=== PATIENT | female | born 1990 | race Caucasian/White ===

== ENCOUNTER 2020-12-06 16:19 | Outpatient (REF) | payer OTHER, SELFPAY ==
[2020-12-06 17:44] LABS: Hematocrit 39.2 % (37-47); Hemoglobin 12.8 g/dl (12.0-16.0); Mean Corpuscular HGB Conc 32.7 g/dl (31.0-35.0); Mean Corpuscular Hemoglobin 29.3 pg (27.0-33.0); Mean Corpuscular Volume 89.7 fL (80-98); Mean Platelet Volume 10.7 fL (9.4-12.3); Platelet Count 323 X10*3/uL (160-400); Red Blood Count 4.37 X10*6/uL (4.20-5.50); Red Cell Distribution Width 13.2 % (11.0-16.0); White Blood Count 10.8 X10*3/uL (4.8-10.8)
[2020-12-06 17:49] LABS: INTERNATIONAL NORM RATIO 1.1 (0.9-1.1); Prothrombin Time 12.3 SEC (9.9-13.0)
[2020-12-06 17:52] LABS: Partial Thromboplastin Time 30.2 SEC (24.1-38.0)
== END 2020-12-06 16:20 | disposition home or self-care (01) ==
LOC: HO.LAB 16:19
PROVIDERS: PCP Internal Medicine; Visit Provider Specialist
DX: Z01.812 Encounter for preprocedural laboratory examination (principal)
CPT/HCPCS: 36415; 85027; 85610; 85730

== ENCOUNTER 2020-12-21 06:32 | Outpatient (REF) | payer OTHER, SELFPAY ==
--- NOTE | 2020-12-21 06:52 | ECG_ITS ---
Test Reason : PRE OP Blood Pressure : / mmHG Vent. Rate : 063 BPM Atrial Rate : 063 BPM P-R Int : 148 ms QRS Dur : 086 ms QT Int : 428 ms P-R-T Axes : 021 025 009 degrees QTc Int : 437 ms Normal sinus rhythm Normal ECG When compared with ECG of 31-DEC-2010 23:15, No significant change was found Referred By: Janet Alanis Electronically Signed By:LEXI GARCIA MD
[2020-12-21 07:34] LABS: Alanine Aminotransferase 15 U/L (0-31); Albumin Level 4.1 g/dL (3.5-5.0); Alkaline Phosphatase 85 U/L (39-117); Anion Gap 11 (12-20); Aspartate Amino Transferase 16 U/L (5-31); Bilirubin Total 0.4 mg/dL (0.0-1.0); Blood Urea Nitrogen 7 mg/dL (9-16); Calcium 9.5 mg/dL (8.4-10.2); Carbon Dioxide 26 mmol/L (22-29); Chloride 110 mmol/L (96-108); Estimated Glomerular Filt Rate > 60; Glucose Fasting 109 mg/dL (60-99); Potassium 4.2 mmol/L (3.3-5.1); Sodium 143 mmol/L (135-145); Total Protein 7.2 g/dL (6.5-8.0)
== END 2020-12-21 06:33 | disposition home or self-care (01) ==
LOC: HO.LAB 06:32
PROVIDERS: PCP Internal Medicine; Visit Provider Internal Medicine
DX: Z01.818 Encounter for other preprocedural examination (principal); E66.9 Obesity, unspecified
CPT/HCPCS: 36415; 80053; 93005

== ENCOUNTER 2021-05-01 10:34 | Emergency (ER) | payer OTHER, SELFPAY ==
--- NOTE | ~2021-05-01 | XR_ITS ---
EXAMINATION: XR CHEST CLINICAL INFORMATION: Covid positive. Cough COMPARISON: None TECHNIQUE: 2 views of the chest were obtained. FINDINGS: The lungs are somewhat expanded with patchy opacity seen in both mid and lower lung slightly greater on the right suggestive of infiltrates. Heart size and progress clarities normal. No gross bony abnormality seen. XR/XR chest 2V IMPRESSION: Hypoexpanded lungs with bilateral infiltrates right greater than left.
--- NOTE | ~2021-05-01 | CT_ITS ---
EXAMINATION: CT ANGIOGRAM OF THE CHEST WITH AND WITHOUT CONTRAST (CT PULMONARY ANGIOGRAM FOR PE) CLINICAL INFORMATION: Reason for Exam Elevated D-dimer. COVID-19 positive. r/o PE COMPARISON: Chest x-ray 05/01/2021 TECHNIQUE: Prior to contrast administration, noncontrast localization images were obtained. Subsequently, multidetector volumetric imaging was performed from the thoracic inlet to below the diaphragms following the administration of 65 mL Omnipaque 350 intravenous contrast. No contrast reaction reported Sagittal, coronal, and MIP oblique sagittal reformatted images were obtained on the CT workstation, uploaded to PACS, and reviewed. This CT examination was performed using dose optimization techniques as appropriate, variously including the following: *Automated exposure control *Adjustment of mA and/or kV according to patient size (this includes techniques or standardized protocols for targeted exams where dose is matched to indication/reason for exam; i.e. extremities or head) *Use of iterative reconstruction technique Total exam dose-length product 204.87 mGy-cm FINDINGS: QUALITY OF STUDY/CONTRAST BOLUS: Satisfactory. PULMONARY ARTERIES: No central or segmental pulmonary emboli. THORACIC AORTA: No aneurysm or dissection. LUNG: Multifocal airspace opacities ,pneumonia. These have the appearance of crazy paving and are consistent with clinical history of Covid 19 positive. PLEURA: No pleural effusion or pneumothorax. MEDIASTINUM: Normal heart size. No pericardial effusion. No hilar or mediastinal lymphadenopathy. No evidence of septal bowing or right heart strain. CHEST WALL/AXILLA: No axillary or internal mammary lymphadenopathy. OSSEOUS STRUCTURES: No acute or suspicious osseous abnormality. UPPER ABDOMEN: Unremarkable. No reflux of contrast into the hepatic veins to suggest elevated right heart pressures. CT/CT angio chest PE protocol IMPRESSION: 1. No evidence of pulmonary embolism. 2. Multifocal airspace disease consistent with pneumonia. VTE: negative
[2021-05-01 12:09] VITALS: BP 121/59; PULSE 108; RESP 20; TEMP 37.2; O2SAT 96; BMI 28.1
[2021-05-01 13:45] LABS: Imm Gran Abs Auto 0.01 X10*3/uL (0.00-0.03); Imm Gran Pct Auto 0.2 % (0.0-0.4); Lymphocytes Absolute Auto 1.3 X10*3/uL (1.2-4.9); Mean Corpuscular HGB Conc 33.3 g/dl (31.0-35.0); SCAN SMEAR FLAG 1
[2021-05-01 13:47] LABS: Hematocrit 40.6 % (37.0-47.0); Hemoglobin 13.5 g/dl (12.0-16.0); Mean Corpuscular Hemoglobin 26.8 pg (27.0-33.0); Mean Corpuscular Volume 80.7 fL (80.0-98.0); Monocytes Absolute Auto 0.1 X10*3/uL (0.1-1.2); Monocytes Percent Auto 2.5 % (2-11); Neutrophils Percent Auto 68.3 % (45-73); Platelet Count 166 X10*3/uL (160-400); Red Blood Count 5.03 X10*6/uL (4.20-5.50); Red Cell Distribution Width 16.3 % (11.0-16.0); White Blood Count 4.4 X10*3/uL (4.8-10.8)
[2021-05-01 13:49] LABS: UPreg QC Valid YES; Urine Pregnancy NEGATIVE (NEGATIVE)
[2021-05-01 14:01] LABS: Alanine Aminotransferase 20 U/L (0-31); Albumin Level 4.2 g/dL (3.5-5.0); Alkaline Phosphatase 66 U/L (39-117); Anion Gap 16 (12-20); Aspartate Amino Transferase 34 U/L (5-31); Bilirubin Direct 0.2 mg/dL (0.0-0.5); Bilirubin Total 0.4 mg/dL (0.0-1.0); Blood Urea Nitrogen 9 mg/dL (9-16); C Reactive Protein 10.73 mg/dL (< or = 0.50); Calcium 8.8 mg/dL (8.4-10.2); Carbon Dioxide 21 mmol/L (22-29); Chloride 103 mmol/L (96-108); Creatinine Clr Calc Pharmacy 102.2; Estimated Glomerular Filt Rate > 60; Glucose Random 110 mg/dL (60-115); Lactate Dehydrogenase 371 U/L (122-220); Lipase 88 U/L (8-78); Potassium 3.6 mmol/L (3.3-5.1); Sodium 136 mmol/L (135-145); Total Protein 7.9 g/dL (6.5-8.0)
[2021-05-01 14:05] LABS: INTERNATIONAL NORM RATIO 1.3 (0.9-1.1); MANUAL DIFF FLAG SCAN; PLT ABN DIST 1
[2021-05-01 14:06] LABS: SLIDE REVIEW VERIFIED
[2021-05-01 14:07] LABS: D Dimer High Sensitivity 314 NG/ML; Partial Thromboplastin Time 29.7 SEC (24.1-38.0)
[2021-05-01 14:08] LABS: B Type Natriuretic Peptide < 10 pg/mL (<100); Troponin-I High Sensitivity < 3.5 ng/L (<3.5-17.0)
[2021-05-01 14:11] LABS: Lactic Acid 1.7 mmol/L (0.5-2.0)
[2021-05-01 14:20] LABS: Procalcitonin 0.05 ng/mL
[2021-05-01 14:23] LABS: Ferritin 172 ng/mL (10-122)
[2021-05-01] MEDS: Ketorolac Tromethamine 30 MG/ML VIAL 15 MG IVPUSH (14:30)
[2021-05-01] MEDS: HYDROcodone/Homat 5/1.5/5 ML 5 ML SYRUP PO (14:31)
[2021-05-01] MEDS: Benzonatate 100 MG CAPSULE 200 MG PO (14:31)
[2021-05-01] MEDS: Acetaminophen 325 MG TABLET 650 MG PO (14:31)
[2021-05-01] MEDS: 0.9 % Sodium Chloride 1,000 ML 999 ML IVCONT (14:32)
[2021-05-01] MEDS: Famotidine/PF 20 MG/2 ML VIAL IVPUSH (14:32)
[2021-05-01] MEDS: ondansetron HCL 4 MG/2 ML VIAL IVPUSH (14:32)
--- NOTE | 2021-05-01 14:34 | ED_ITS ---
HPI - URI/Sore Throat General Chief Complaint: Upper Respiratory Symptoms Stated Complaint: covid + diff breathing Time Seen by Provider: 05/01/21 12:24 Source: patient Mode of arrival: ambulatory History of Present Illness HPI Narrative: 30-year-old female with a past medical history of anxiety, depression, COVID-19 positive on 04/22/2021, presenting to the ED complaining of fever T-max 102?, cough, worsening SOB, and right-sided chest discomfort worse with coughing and deep breathing. Reports diffuse myalgias, lethargy/fatigue, and nausea. Family at home also COVID positive. Denies abdominal pain, vomiting, diarrhea, pedal edema MD elicited complaint: fever, cough and nasal congestion Related Data Home Medications Medication Instructions Recorded Confirmed sertraline 100 mg tablet 200 mg PO DAILY 12/20/20 Previous Rx's Medication Instructions Recorded acetaminophen 500 mg tablet 500 mg PO Q6H PRN #20 tab 05/01/21 (Tylenol Extra Strength) albuterol sulfate 90 mcg/actuation 2 puff INHALATION Q4-6H PRN #6.7 g 05/01/21 aerosol inhaler benzonatate 200 mg capsule 200 mg PO TID PRN #20 cap 05/01/21 doxycycline hyclate 100 mg tablet 100 mg PO BID 7 Days #14 tab 05/01/21 fluticasone propionate 50 2 spray INTRANASAL DAILY #16 g 05/01/21 mcg/actuation nasal spray,suspension (Flonase Allergy Relief) Allergies Allergy/AdvReac Type Severity Reaction Status Date / Time sumatriptan [Sumatriptan] Allergy Unknown FACIAL Verified 12/20/20 12:58 SWELLING THROAT TIGHTNESS Review of Systems Review of Systems: Constitutional: + Fever, + Chills, No Night Sweats, + Fatigue, + Malaise ENT/Mouth: No Ear Pain, No Nasal Congestion, No Sinus Pain, No Hoarseness, No sore throat, + Rhinorrhea, No Swallowing Difficulty Eyes: No Eye Pain, No Swelling, No Redness Cardiovascular: + Chest Pain, + SOB, No Dyspnea on Exertion, No Orthopnea, No Edema, No Palpitations Respiratory: + Cough, No Sputum, No Wheezing, + Dyspnea Gastrointestinal: + Nausea, No Vomiting, No Diarrhea, No Constipation, No Abdominal pain Genitourinary: No Dysuria, No Urinary Frequency, No Hematuria, No Flank Pain, No Urinary Flow Changes Musculoskeletal: No joint pain, + Myalgias, No Joint Swelling Skin: No Skin Lesions, No rash Neuro: No Weakness, No Dizziness, + Headache Yes all other systems are reviewed and are negative [facility] Past Medical History Attestation statement: The following information was validated with the patient. Medical History SHMUEL (generalized anxiety disorder) Mild depression Obese Pre-op evaluation Surgical History History of appendectomy History of eye surgery Family History Family History Father Diabetes Hypertension Chronic mental illness Depression Mother No problems noted. Paternal Grandmother Pneumonia Paternal Grandfather Throat cancer Suicide Family/Other FH: mental illness Social History Social History Housing: Apartment Alcohol intake: former Patient Tobacco Use Status: Former Tobacco user Tobacco use type: Cigarette e-Cigarette/Vaping Use: Never Used Second Hand Smoke Exposure: No Advance Directives: No Advance Directives Information Provided: No Patient : No service: No Current occupational status: employed Physical Exam Vital Signs: Vital Signs: Last Vital Signs Temp 98.8 F 05/01/21 16:40 Pulse 102 H 05/01/21 16:40 Resp 20 05/01/21 16:40 BP 128/77 05/01/21 16:40 Pulse Ox 95 05/01/21 16:40 BMI result Body Mass Index 28.1 Const: General: cooperative Orientation/consciousness: patient oriented x3 Limitations: no limitations HENMT: Head: Yes normal to inspection Ears: hearing grossly normal bilaterally General nose exam: Normal external nose present Face and sinus: Yes normal facial exam Eyes: General: appearance normal, both eyes and all related structures EOM: EOMs intact bilaterally Neck: Neck: Yes normal visual inspection, Yes no meningeal signs and Yes supple Resp: Effort & Inspection: normal respiratory effort and no respiratory distress Auscultation: clear to auscultation bilaterally, no rales, no rhonchi and no wheezes Cardio: Rate: regular rate Heart sounds: S1 normal heart sound present and S2 normal heart sound present GI: Inspection: Yes normal to inspection Palpation (GI): Soft to palpation, nontender, no guarding and not rigid : General: Yes no CVA tenderness Back/Spine/Pelvis: Back: no CVA tenderness Skin: Rashes: no rashes Wounds: no wounds Neuro: General: patient oriented x3 and no meningeal signs Gait exam (Neuro): Normal gait present Extrem: General: Yes normal to inspection, Yes no pedal edema and Yes no calf tenderness Course Course Course Narrative: XR chest 2V IMPRESSION: Hypoexpanded lungs with bilateral infiltrates right greater than left. >> suspected from COVID-19 infection. Still low concern for severe sepsis as known viral etiology. IV Doxycycline ordered -1434--leukopenic to 4.4 expected from COVID-19 infection. D-dimer elevated to 314 > will obtain CTA to rule out PE. Lactic acid negative. -ferritin, LDH, CRP elevated consistent with COVID-19 infection. Lipase mildly elevated. Troponin negative 1624-- CT angio chest PE protocol IMPRESSION: 1. No evidence of pulmonary embolism. 2. Multifocal airspace disease consistent with pneumonia. VTE: negative -satting 92% on RA > will give patient 1 time dose of 6mg of IV Decadron in the ED >> will ambulate patient with pulse ox -1650--patient ambulated in the ED maintaining saturation 92% on RA, 94% at rest. Patient is safe for discharge home at this time, worrisome signs and symptoms and strict return precautions discussed. Discussed with patient needed close monitoring of pulse oximetry at home MDM - URI/Sore Throat MDM Narrative Medical decision making narrative: 30-year-old female with a past medical history of anxiety, depression, COVID-19 positive on 04/22/2021, presenting to the ED complaining of fever T-max 102?, cough, worsening SOB, and right-sided chest discomfort worse with coughing and deep breathing. On exam low-grade temp 99?, tachycardic likely from fever, lungs CTA, abdomen soft/nontender, no pedal edema/calf tenderness. Concern for persistent COVID-19 symptoms vs COVID pneumonia vs PE. Low concern for severe sepsis at this time as known viral etiology Plan: EKG, labs, CXR, lactic, blood cultures, D-dimer Differential Diagnosis Differential diagnosis: Likely upper respiratory infection, viral infection, bronchitis and pharyngitis Medical Records Attestation: I reviewed the patient's medical records. Lab Data Attestation: I reviewed the patient's lab results. Result diagrams: 05/01/21 13:35 05/01/21 13:35 Labs: Lab Results 05/01/21 05/01/21 05/01/21 Range/Units 13:35 13:35 13:35 WBC 4.4 L (4.8-10.8) X10*3/uL RBC 5.03 (4.20-5.50) X10*6/uL Hgb 13.5 (12.0-16.0) g/dl Hct 40.6 (37.0-47.0) % MCV 80.7 (80.0-98.0) fL MCH 26.8 L (27.0-33.0) pg MCHC 33.3 (31.0-35.0) g/dl RDW 16.3 H (11.0-16.0) % Plt Count 166 (160-400) X10*3/uL MPV 11.0 (9.4-12.3) fL Immature Gran % (Auto) 0.2 (0.0-0.4) % Neut % (Auto) 68.3 (45-73) % Lymph % (Auto) 29.0 (20-40) % [place] % (Auto) 2.5 (2-11) % Eos % (Auto) 0.0 (0-4) % Baso % (Auto) 0.0 (0-2) % Lymph # (Auto) 1.3 (1.2-4.9) X10*3/uL [place] # (Auto) 0.1 (0.1-1.2) X10*3/uL Eos # (Auto) 0.0 (0.0-0.4) X10*3/uL Baso # (Auto) 0.0 (0.0-0.2) X10*3/uL Abs Immat Gran (auto) 0.01 (0.00-0.03) X10*3/uL Absolute Neuts (auto) 3.0 (2.0-8.3) x10*3/uL Absolute Nucleated RBC 0.000 (0.0-0.012) X10*3/uL Nucleated RBC % (auto) 0.0 (0.0-0.2) /100WBC Smear Tech's Comments VERIFIED PT 15.0 H (9.9-13.0) SEC INR 1.3 H (0.9-1.1) APTT 29.7 (24.1-38.0) SEC D-Dimer High Sensitivty 314 NG/ML Sodium 136 (135-145) mmol/L Potassium 3.6 (3.3-5.1) mmol/L Chloride 103 (96-108) mmol/L Carbon Dioxide 21 L (22-29) mmol/L Anion Gap 16 (12-20) BUN 9 (9-16) mg/dL Creatinine 0.75 (0.5-1.4) mg/dL Estim Creat Clear Calc 102.2 Estimated GFR > 60 Random Glucose 110 (60-115) mg/dL Lactic Acid (0.5-2.0) mmol/L Calcium 8.8 D (8.4-10.2) mg/dL Magnesium 2.0 (1.6-2.6) mg/dL Ferritin (10-122) ng/mL Total Bilirubin 0.4 (0.0-1.0) mg/dL Direct Bilirubin 0.2 (0.0-0.5) mg/dL AST 34 H D (5-31) U/L ALT 20 (0-31) U/L Alkaline Phosphatase 66 D (39-117) U/L Lactate Dehydrogenase 371 H (122-220) U/L Troponin I High Sens (<3.5-17.0) ng/L C-Reactive Protein 10.73 H (< or = 0.50) mg/dL B-Natriuretic Peptide (<100) pg/mL Total Protein 7.9 (6.5-8.0) g/dL Albumin 4.2 (3.5-5.0) g/dL Lipase (8-78) U/L Procalcitonin ng/mL Urine Test (NEGATIVE) 05/01/21 05/01/21 05/01/21 Range/Units 13:35 13:35 13:35 WBC (4.8-10.8) X10*3/uL RBC (4.20-5.50) X10*6/uL Hgb (12.0-16.0) g/dl Hct (37.0-47.0) % MCV (80.0-98.0) fL MCH (27.0-33.0) pg MCHC (31.0-35.0) g/dl RDW (11.0-16.0) % Plt Count (160-400) X10*3/uL MPV (9.4-12.3) fL Immature Gran % (Auto) (0.0-0.4) % Neut % (Auto) (45-73) % Lymph % (Auto) (20-40) % [place] % (Auto) (2-11) % Eos % (Auto) (0-4) % Baso % (Auto) (0-2) % Lymph # (Auto) (1.2-4.9) X10*3/uL [place] # (Auto) (0.1-1.2) X10*3/uL Eos # (Auto) (0.0-0.4) X10*3/uL Baso # (Auto) (0.0-0.2) X10*3/uL Abs Immat Gran (auto) (0.00-0.03) X10*3/uL Absolute Neuts (auto) (2.0-8.3) x10*3/uL Absolute Nucleated RBC (0.0-0.012) X10*3/uL Nucleated RBC % (auto) (0.0-0.2) /100WBC Smear Tech's Comments PT (9.9-13.0) SEC INR (0.9-1.1) APTT (24.1-38.0) SEC D-Dimer High Sensitivty NG/ML Sodium (135-145) mmol/L Potassium (3.3-5.1) mmol/L Chloride (96-108) mmol/L Carbon Dioxide (22-29) mmol/L Anion Gap (12-20) BUN (9-16) mg/dL Creatinine (0.5-1.4) mg/dL Estim Creat Clear Calc Estimated GFR Random Glucose (60-115) mg/dL Lactic Acid (0.5-2.0) mmol/L Calcium (8.4-10.2) mg/dL Magnesium (1.6-2.6) mg/dL Ferritin 172 H (10-122) ng/mL Total Bilirubin (0.0-1.0) mg/dL Direct Bilirubin (0.0-0.5) mg/dL AST (5-31) U/L ALT (0-31) U/L Alkaline Phosphatase (39-117) U/L Lactate Dehydrogenase (122-220) U/L Troponin I High Sens < 3.5 (<3.5-17.0) ng/L C-Reactive Protein (< or = 0.50) mg/dL B-Natriuretic Peptide < 10 (<100) pg/mL Total Protein (6.5-8.0) g/dL Albumin (3.5-5.0) g/dL Lipase 88 H (8-78) U/L Procalcitonin 0.05 ng/mL Urine Test (NEGATIVE) 05/01/21 05/01/21 Range/Units 13:35 13:48 WBC (4.8-10.8) X10*3/uL RBC (4.20-5.50) X10*6/uL Hgb (12.0-16.0) g/dl Hct (37.0-47.0) % MCV (80.0-98.0) fL MCH (27.0-33.0) pg MCHC (31.0-35.0) g/dl RDW (11.0-16.0) % Plt Count (160-400) X10*3/uL MPV (9.4-12.3) fL Immature Gran % (Auto) (0.0-0.4) % Neut % (Auto) (45-73) % Lymph % (Auto) (20-40) % [place] % (Auto) (2-11) % Eos % (Auto) (0-4) % Baso % (Auto) (0-2) % Lymph # (Auto) (1.2-4.9) X10*3/uL [place] # (Auto) (0.1-1.2) X10*3/uL Eos # (Auto) (0.0-0.4) X10*3/uL Baso # (Auto) (0.0-0.2) X10*3/uL Abs Immat Gran (auto) (0.00-0.03) X10*3/uL Absolute Neuts (auto) (2.0-8.3) x10*3/uL Absolute Nucleated RBC (0.0-0.012) X10*3/uL Nucleated RBC % (auto) (0.0-0.2) /100WBC Smear Tech's Comments PT (9.9-13.0) SEC INR (0.9-1.1) APTT (24.1-38.0) SEC D-Dimer High Sensitivty NG/ML Sodium (135-145) mmol/L Potassium (3.3-5.1) mmol/L Chloride (96-108) mmol/L Carbon Dioxide (22-29) mmol/L Anion Gap (12-20) BUN (9-16) mg/dL Creatinine (0.5-1.4) mg/dL Estim Creat Clear Calc Estimated GFR Random Glucose (60-115) mg/dL Lactic Acid 1.7 (0.5-2.0) mmol/L Calcium (8.4-10.2) mg/dL Magnesium (1.6-2.6) mg/dL Ferritin (10-122) ng/mL Total Bilirubin (0.0-1.0) mg/dL Direct Bilirubin (0.0-0.5) mg/dL AST (5-31) U/L ALT (0-31) U/L Alkaline Phosphatase (39-117) U/L Lactate Dehydrogenase (122-220) U/L Troponin I High Sens (<3.5-17.0) ng/L C-Reactive Protein (< or = 0.50) mg/dL B-Natriuretic Peptide (<100) pg/mL Total Protein (6.5-8.0) g/dL Albumin (3.5-5.0) g/dL Lipase (8-78) U/L Procalcitonin ng/mL Urine Test NEGATIVE (NEGATIVE) Discharge Plan Discharge Clinical Impression: Pneumonia due to COVID-19 virus Patient Disposition: Home, Self-Care Instructions: COVID-19 (Coronavirus Disease 2019) (ED) Additional Instructions: You have COVID pneumonia Doxycycline is an antibiotic please take as prescribed Please monitor your oxygen at home, obtain a pulse oximeter if her oxygen is dropping into the low 90s or below 90 return to the ED immediately Please use albuterol inhaler at home as needed for shortness of breath/wheezing Take Tylenol for fever/body aches, if this does not resolve fever take Motrin If symptoms persist or worsening of constant worsening shortness of breath, chest pain or fever unresolved with medications return to the ED Prescriptions: New albuterol sulfate 90 mcg/actuation HFA aerosol inhaler 2 puff inhalation Q4-6H PRN (Reason: shortness of breath or wheezing) Qty: 6.7 RF: 0 benzonatate 200 mg capsule 200 mg PO TID PRN (Reason: cough) Qty: 20 RF: 0 acetaminophen [Tylenol Extra Strength] 500 mg tablet 500 mg PO Q6H PRN (Reason: pain or fever) Qty: 20 RF: 0 fluticasone propionate [Flonase Allergy Relief] 50 mcg/actuation spray,suspension 2 spray intranasal DAILY Qty: 16 RF: 0 doxycycline hyclate 100 mg tablet 100 mg PO BID 7 Days Qty: 14 RF: 0 No Action sertraline 100 mg tablet 200 mg PO DAILY RF: 0 Referrals: Janet Rome MD [Primary Care Provider] - 2 days (call)
[2021-05-01 15:03] VITALS: BP 111/51; PULSE 101; RESP 18; TEMP 37.2; O2SAT 92
[2021-05-01] MEDS: iohexoL 350 MG/ML 100 ML INFUS..BTL IV (15:09)
[2021-05-01] MEDS: Doxycycline Hyclate 100 MG in 0.9 % Sodium Chloride 250 ML 166.67 MG IV (15:18)
[2021-05-01 16:40] VITALS: BP 128/77; PULSE 102; RESP 20; TEMP 37.1; O2SAT 95
[2021-05-01] MEDS: dexAMETHasone sod phosphate 4 MG/ML VIAL 6 MG IVPUSH (16:40)
== END 2021-05-01 20:20 | disposition home or self-care (01) ==
PROVIDERS: Physician Assistant; Emergency Provider Emergency Medicine; PCP Internal Medicine
DX: U07.1 COVID-19 (principal); J12.82 Pneumonia due to coronavirus disease 2019; R06.02 Shortness of breath; R50.9 Fever, unspecified; R00.0 Tachycardia, unspecified
CPT/HCPCS: 36415; 71046; 71275; 80048; 80076; 81025; 82728; 83605; 83615; 83690; 83735; 83880; 84145; 84484; 85025; 85379; 85610; 85730; 86140; 87040; 96361; 96365; 96375; 99284; J1100; J1885; J2405; Q9967

== ENCOUNTER 2021-05-03 11:03 | Inpatient (IN) | payer OTHER, SELFPAY ==
[2021-05-03] VITALS (10 sets, daily range): BP systolic 96–104; BP diastolic 52–64; PULSE 73–109; RESP 19–35; TEMP 36.8–37.1; O2SAT 90–97; BMI 25.0
--- NOTE | ~2021-05-03 | XR_ITS ---
EXAMINATION: XR CHEST CLINICAL INFORMATION: Worsening shortness of breath positive for COVID COMPARISON: Chest radiographs 05/01/2021 TECHNIQUE: Portable upright AP view of the chest was obtained. FINDINGS: There are low lung volumes with inspiration to the seventh posterior intercostal spaces. Bilateral streaky groundglass opacities are slightly increased. There is no confluent lobar or segmental airspace consolidation or effusion. No pneumothorax or pneumomediastinum. The vascularity is normal. The heart is normal in size. XR/XR chest 1V IMPRESSION: Bilateral streaky groundglass opacities slightly increased since recent study 05/01/2021. Low lung volumes/poor inspiration.
--- NOTE | 2021-05-03 12:07 | ECG_ITS ---
Test Reason : dyspnea Blood Pressure : / mmHG Vent. Rate : 096 BPM Atrial Rate : 096 BPM P-R Int : 144 ms QRS Dur : 082 ms QT Int : 334 ms P-R-T Axes : 029 004 020 degrees QTc Int : 421 ms Normal sinus rhythm Minimal voltage criteria for LVH, may be normal variant ( R in aVL ) Nonspecific T wave abnormality Abnormal ECG When compared with ECG of 21-DEC-2020 07:01, Vent. rate has increased BY 33 BPM Nonspecific T wave abnormality now evident in Anterolateral leads Referred By: Elva Voss Electronically Signed By:VIOLETA NERI
[2021-05-03] MEDS: Albuterol Sulfate (0.083%) 2.5 MG/3 ML VIAL.NEB 7.5 MG INHALE (12:25)
[2021-05-03 12:52] LABS: MANUAL DIFF FLAG NO
[2021-05-03 13:12] LABS: INTERNATIONAL NORM RATIO 1.4 (0.9-1.1); Prothrombin Time 15.8 SEC (9.9-13.0)
[2021-05-03 13:16] LABS: Lactic Acid 1.8 mmol/L (0.5-2.0)
[2021-05-03 13:22] LABS: Basophils Percent Auto 0.2 % (0-2); Hematocrit 35.6 % (37.0-47.0); Hemoglobin 11.7 g/dl (12.0-16.0); Imm Gran Abs Auto 0.05 X10*3/uL (0.00-0.03); Imm Gran Pct Auto 0.8 % (0.0-0.4); Lymphocytes Absolute Auto 1.1 X10*3/uL (1.2-4.9); Lymphocytes Percent Auto 17.8 % (20-40); Mean Corpuscular HGB Conc 32.9 g/dl (31.0-35.0); Mean Corpuscular Hemoglobin 26.7 pg (27.0-33.0); Mean Corpuscular Volume 81.3 fL (80.0-98.0); Mean Platelet Volume 11.4 fL (9.4-12.3); Monocytes Absolute Auto 0.1 X10*3/uL (0.1-1.2); Neutrophils Absolute Auto 4.9 x10*3/uL (2.0-8.3); Neutrophils Percent Auto 79.2 % (45-73); Platelet Count 167 X10*3/uL (160-400); Red Blood Count 4.38 X10*6/uL (4.20-5.50); White Blood Count 6.1 X10*3/uL (4.8-10.8)
[2021-05-03] MEDS: methylPREDNISolone Sod Succ 125 MG/2 ML VIAL IVPUSH (13:25)
[2021-05-03] MEDS: guaiFEN/Codeine SF 200/20/10ML 10 ML LIQUID PO (13:25)
[2021-05-03 13:26] LABS: Alanine Aminotransferase 24 U/L (0-31); Albumin Level 3.8 g/dL (3.5-5.0); Alkaline Phosphatase 53 U/L (39-117); Anion Gap 13 (12-20); Aspartate Amino Transferase 37 U/L (5-31); Bilirubin Total 0.5 mg/dL (0.0-1.0); Blood Urea Nitrogen 8 mg/dL (9-16); Calcium 8.5 mg/dL (8.4-10.2); Carbon Dioxide 26 mmol/L (22-29); Chloride 107 mmol/L (96-108); Creatinine Clr Calc Pharmacy 96.6; Estimated Glomerular Filt Rate > 60; Glucose Random 137 mg/dL (60-115); Potassium 3.6 mmol/L (3.3-5.1); Sodium 142 mmol/L (135-145); Total Protein 6.9 g/dL (6.5-8.0)
[2021-05-03] MEDS: cefTRIAXone sodium 1 GM in 0.9 % Sodium Chloride 50 ML IV (13:27)
[2021-05-03 13:29] LABS: B Type Natriuretic Peptide < 10 pg/mL (<100)
[2021-05-03] MEDS: 0.9 % Sodium Chloride 1,000 ML 999 ML IVCONT (13:31)
--- NOTE | 2021-05-03 13:40 | ED_ITS ---
HPI - URI/Sore Throat General Chief Complaint: Upper Respiratory Symptoms Stated Complaint: Covid+/Pneumonia/ Oxygen low Time Seen by Provider: 05/03/21 12:07 Related Data Home Medications Medication Instructions Recorded Confirmed sertraline 100 mg tablet 200 mg PO DAILY 12/20/20 Previous Rx's Medication Instructions Recorded acetaminophen 500 mg tablet 500 mg PO Q6H PRN #20 tab 05/01/21 (Tylenol Extra Strength) albuterol sulfate 90 mcg/actuation 2 puff INHALATION Q4-6H PRN #6.7 g 05/01/21 aerosol inhaler benzonatate 200 mg capsule 200 mg PO TID PRN #20 cap 05/01/21 doxycycline hyclate 100 mg tablet 100 mg PO BID 7 Days #14 tab 05/01/21 fluticasone propionate 50 2 spray INTRANASAL DAILY #16 g 05/01/21 mcg/actuation nasal spray,suspension (Flonase Allergy Relief) Allergies Allergy/AdvReac Type Severity Reaction Status Date / Time sumatriptan [Sumatriptan] Allergy Unknown FACIAL Verified 12/20/20 12:58 SWELLING THROAT TIGHTNESS PMFSH Past Medical History Medical History SHMUEL (generalized anxiety disorder) Mild depression Obese Pre-op evaluation Surgical History History of appendectomy History of eye surgery Family History Family History Father Diabetes Hypertension Chronic mental illness Depression Mother No problems noted. Paternal Grandmother Pneumonia Paternal Grandfather Throat cancer Suicide Family/Other FH: mental illness Social History Social History Housing: Apartment Alcohol intake: former Patient Tobacco Use Status: Former Tobacco user Tobacco use type: Cigarette e-Cigarette/Vaping Use: Never Used Second Hand Smoke Exposure: No Advance Directives: No Advance Directives Information Provided: No Patient : No service: No Current occupational status: employed Physical Exam Vital Signs: Vital Signs: Last Vital Signs Temp 98.6 F 05/03/21 13:32 Pulse 109 H 05/03/21 13:32 Resp 19 05/03/21 13:32 BP 99/52 L 05/03/21 13:32 Pulse Ox 97 05/03/21 13:32 Oxygen Flow Rate 2 05/03/21 12:08 BMI result Body Mass Index 25.0 MDM - URI/Sore Throat Lab Data Result diagrams: 05/03/21 12:42 05/03/21 12:42 Labs: Lab Results 05/03/21 05/03/21 05/03/21 Range/Units 12:42 12:42 12:42 WBC 6.1 (4.8-10.8) X10*3/uL RBC 4.38 (4.20-5.50) X10*6/uL Hgb 11.7 L (12.0-16.0) g/dl Hct 35.6 L (37.0-47.0) % MCV 81.3 (80.0-98.0) fL MCH 26.7 L (27.0-33.0) pg MCHC 32.9 (31.0-35.0) g/dl RDW 17.0 H (11.0-16.0) % Plt Count 167 (160-400) X10*3/uL MPV 11.4 (9.4-12.3) fL Immature Gran % (Auto) 0.8 H (0.0-0.4) % Neut % (Auto) 79.2 H (45-73) % Lymph % (Auto) 17.8 L (20-40) % [place] % (Auto) 2.0 (2-11) % Eos % (Auto) 0.0 (0-4) % Baso % (Auto) 0.2 (0-2) % Lymph # (Auto) 1.1 L (1.2-4.9) X10*3/uL [place] # (Auto) 0.1 (0.1-1.2) X10*3/uL Eos # (Auto) 0.0 (0.0-0.4) X10*3/uL Baso # (Auto) 0.0 (0.0-0.2) X10*3/uL Abs Immat Gran (auto) 0.05 H (0.00-0.03) X10*3/uL Absolute Neuts (auto) 4.9 (2.0-8.3) x10*3/uL Absolute Nucleated RBC 0.000 (0.0-0.012) X10*3/uL Nucleated RBC % (auto) 0.0 (0.0-0.2) /100WBC PT 15.8 H (9.9-13.0) SEC INR 1.4 H (0.9-1.1) Sodium 142 (135-145) mmol/L Potassium 3.6 (3.3-5.1) mmol/L Chloride 107 (96-108) mmol/L Carbon Dioxide 26 (22-29) mmol/L Anion Gap 13 (12-20) BUN 8 L (9-16) mg/dL Creatinine 0.78 (0.5-1.4) mg/dL Estim Creat Clear Calc 96.6 Estimated GFR > 60 Random Glucose 137 H (60-115) mg/dL Lactic Acid (0.5-2.0) mmol/L Calcium 8.5 (8.4-10.2) mg/dL Magnesium 2.0 (1.6-2.6) mg/dL Total Bilirubin 0.5 (0.0-1.0) mg/dL AST 37 H (5-31) U/L ALT 24 (0-31) U/L Alkaline Phosphatase 53 (39-117) U/L Total Creatine Kinase (26-140) U/L B-Natriuretic Peptide (<100) pg/mL Total Protein 6.9 (6.5-8.0) g/dL Albumin 3.8 (3.5-5.0) g/dL 05/03/21 05/03/21 05/03/21 Range/Units 12:43 12:43 12:43 WBC (4.8-10.8) X10*3/uL RBC (4.20-5.50) X10*6/uL Hgb (12.0-16.0) g/dl Hct (37.0-47.0) % MCV (80.0-98.0) fL MCH (27.0-33.0) pg MCHC (31.0-35.0) g/dl RDW (11.0-16.0) % Plt Count (160-400) X10*3/uL MPV (9.4-12.3) fL Immature Gran % (Auto) (0.0-0.4) % Neut % (Auto) (45-73) % Lymph % (Auto) (20-40) % [place] % (Auto) (2-11) % Eos % (Auto) (0-4) % Baso % (Auto) (0-2) % Lymph # (Auto) (1.2-4.9) X10*3/uL [place] # (Auto) (0.1-1.2) X10*3/uL Eos # (Auto) (0.0-0.4) X10*3/uL Baso # (Auto) (0.0-0.2) X10*3/uL Abs Immat Gran (auto) (0.00-0.03) X10*3/uL Absolute Neuts (auto) (2.0-8.3) x10*3/uL Absolute Nucleated RBC (0.0-0.012) X10*3/uL Nucleated RBC % (auto) (0.0-0.2) /100WBC PT (9.9-13.0) SEC INR (0.9-1.1) Sodium (135-145) mmol/L Potassium (3.3-5.1) mmol/L Chloride (96-108) mmol/L Carbon Dioxide (22-29) mmol/L Anion Gap (12-20) BUN (9-16) mg/dL Creatinine (0.5-1.4) mg/dL Estim Creat Clear Calc Estimated GFR Random Glucose (60-115) mg/dL Lactic Acid 1.8 (0.5-2.0) mmol/L Calcium (8.4-10.2) mg/dL Magnesium (1.6-2.6) mg/dL Total Bilirubin (0.0-1.0) mg/dL AST (5-31) U/L ALT (0-31) U/L Alkaline Phosphatase (39-117) U/L Total Creatine Kinase 83 (26-140) U/L B-Natriuretic Peptide < 10 (<100) pg/mL Total Protein (6.5-8.0) g/dL Albumin (3.5-5.0) g/dL Discharge Plan Discharge Prescriptions: No Action albuterol sulfate 90 mcg/actuation HFA aerosol inhaler 2 puff inhalation Q4-6H PRN (Reason: shortness of breath or wheezing) Qty: 6.7 RF: 0 benzonatate 200 mg capsule 200 mg PO TID PRN (Reason: cough) Qty: 20 RF: 0 acetaminophen [Tylenol Extra Strength] 500 mg tablet 500 mg PO Q6H PRN (Reason: pain or fever) Qty: 20 RF: 0 fluticasone propionate [Flonase Allergy Relief] 50 mcg/actuation spray,suspension 2 spray intranasal DAILY Qty: 16 RF: 0 doxycycline hyclate 100 mg tablet 100 mg PO BID 7 Days Qty: 14 RF: 0 sertraline 100 mg tablet 200 mg PO DAILY RF: 0
--- NOTE | 2021-05-03 13:43 | ED.SOB ---
HPI - SOB/Dyspnea General Chief Complaint: Upper Respiratory Symptoms Stated Complaint: Covid+/Pneumonia/ Oxygen low Time Seen by Provider: 05/03/21 12:07 Source: patient Mode of arrival: ambulatory Limitations: no limitations History of Present Illness HPI Narrative: 30-year-old female with a past medical history of anxiety, depression who was recently diagnosed with COVID-19 on 04/22/2021 after her boyfriend tested positive for COVID presenting to the ED with complaints of fevers up to 102, dry cough, worsening shortness of breath/dyspnea on exertion/orthopnea with associated chest pain worse with coughing and deep inspiration. Reports she is taking [id number] Motrin Tylenol and the meds that she was given when she was seen here on 05/01/2021 which include albuterol inhaler, Tessalon Perles, Tylenol, nasal spray and doxycycline and no symptomatic relief. She had a full workup on 05/01/2021 which included a CTA of her chest which was negative for PE although revealed multifocal pneumonia no evidence of effusions or any other acute processes. Reports that she is not vaccinated to COVID or flu vaccine. She denies any dizziness, headaches, sore throat, drooling, palpitations, extremity edema, nausea/vomiting/diarrhea, rashes, abdominal pain, back pain, dysuria, abnormal vaginal discharge or any other symptoms complaints or concerns at this time. MD elicited complaint: shortness of breath, cough, pain with inspiration and chest pain Pertinent past history: other (+ COVID on 04/22/2021) Onset (ago): day(s) (11) Context: other (See above) Timing: constant and progressively worsening Severity: severe Exacerbating factors: lying flat, exertion, movement, coughing, inspiration, talking and deep breaths Relieving factors: nothing Known history of: other (+ COVID since 04/22/21) Associated symptoms: chest pain, pain with inspiration, fever, cough and orthopnea Treatment prior to arrival: other (See above) Related Data Home oxygen amount: none Previous Rx's Medication Instructions Recorded acetaminophen 500 mg tablet 500 mg PO Q6H PRN #20 tab 05/01/21 (Tylenol Extra Strength) albuterol sulfate 90 mcg/actuation 2 puff INHALATION Q4-6H PRN #6.7 g 12/19/21 aerosol inhaler benzonatate 200 mg capsule 200 mg PO TID PRN #20 cap 05/01/21 doxycycline hyclate 100 mg tablet 100 mg PO BID 7 Days #14 tab 05/01/21 Allergies Allergy/AdvReac Type Severity Reaction Status Date / Time sumatriptan [Sumatriptan] Allergy Unknown FACIAL Verified 12/20/20 12:58 SWELLING THROAT TIGHTNESS Review of Systems Review of Systems: Constitutional : No Weight loss, + Fever, + Chills, No Night Sweats, + Fatigue, + Malaise ENT/Mouth : No Hearing loss, No Ear Pain, No Nasal Congestion, No Sinus Pain, No Hoarseness, No sore throat, No Rhinorrhea, No Swallowing Difficulty Eyes: No Eye Pain, No Swelling, No Redness, No Foreign Body, No Discharge, No Vision Changes Cardiovascular : + Chest Pain, + SOB, + Dyspnea on Exertion, + Orthopnea, No Edema, No Palpitations Respiratory : + Cough, No Sputum, No Wheezing, No Smoke Exposure, + Dyspnea Gastrointestinal : No Nausea, No Vomiting, No Diarrhea, No Constipation, No abdominal Pain, No Hematochezia, No Melena Genitourinary : no irregular bleeding, No Dysuria, No Urinary Frequency, No Hematuria, No Urinary Incontinence, No Urgency, No Flank Pain, No Urinary Flow Changes, No Hesitancy Musculoskeletal : No joint pain, No Myalgias, No Joint Swelling Skin : No Skin Lesions, No rash Neuro : + General Weakness, No Numbness, No Paresthesias, No Loss of Consciousness, No Dizziness, No Headache Psych : No Anxiety/Panic, No Depression, No SI/HI/AH/VH, No Social Issues, Heme/Lymph: No Bruising, No Bleeding,No Lymphadenopathy Endocrine : No Polyuria, No Polydipsia, No Temperature Intolerance Yes all other systems are reviewed and are negative [facility] Past Medical History Attestation statement: The following information was validated with the patient. Medical History SHMUEL (generalized anxiety disorder) Mild depression Obese Pre-op evaluation Surgical History History of appendectomy History of eye surgery Family History Family History Father Diabetes Hypertension Chronic mental illness Depression Mother No problems noted. Paternal Grandmother Pneumonia Paternal Grandfather Throat cancer Suicide Family/Other FH: mental illness Social History Social History Housing: Apartment Alcohol intake: former Patient Tobacco Use Status: Former Tobacco user Tobacco use type: Cigarette e-Cigarette/Vaping Use: Never Used Second Hand Smoke Exposure: No Advance Directives: No Advance Directives Information Provided: No Patient : No service: No Current occupational status: employed Physical Exam Vital Signs: Vital Signs: Last Vital Signs Temp 98.6 F 05/03/21 13:32 Pulse 109 H 05/03/21 13:32 Resp 19 05/03/21 13:32 BP 99/52 L 05/03/21 13:32 Pulse Ox 90 L 05/03/21 14:07 Oxygen Flow Rate 2 05/03/21 12:08 BMI result Body Mass Index 25.0 vital signs have been reviewed as normal and appeared to be correct. Blood pressure 97/64. Heart rate 108. Respiration rate normal. Temperature normal. Oxygen saturation 91-94% placed on 2L's due to intermittently drops into the 80s Appearance: Alert. Oriented X3. In acute respiratory distress. Head: Normal external exam. Normocephalic. Atraumatic. Eyes: PERRLA. EOMI. Conjunctiva and sclera normal. Eyelids normal. ENT: EAC normal. TM's Normal. Pharynx normal. Uvula midline. Moist mucous membranes. No trismus noted. No drooling noted. No muffled voice noted. Neck: Normal inspection. Neck supple. FROM. No adenopathy. Thyroid Normal. No meningeal signs. No neck mass noted. CVS: Normal heart rate and rhythm. Heart sound normal. Pulses normal throughout. No murmurs/rales/gallops. Respiratory: In acute respiratory distress with decreased breath sounds. Patient can barely take a deep inspiration. Although no wheezes/rales/rhonchi noted on my exam. Patient has pain with inspiration. She does have reproducible anterior chest wall tenderness. Patient noted to have accessory muscle usage noted tracheal tugging and abdominal retractions. Abdomen: Soft and nontender. Bowel sounds normal in all 4 quadrants. No distention noted. No organomegaly noted. No visible injury noted. Back: No CVA tenderness. Full range of motion noted. No rashes/lesion/induration/fluctuance or signs of infection noted. Skin: Skin warm and dry. Normal skin color. Normal skin turgor. No rashes/lesions/lacerations noted. Extremities: No lower extremity edema. No calf tenderness is noted. Extremities exhibit normal range of motion. Extremities nontender. Neuro: Oriented X 3. No motor deficit. No sensory deficit. Reflexes normal. Normal steady gait. No focal neuro deficits noted. Vascular: + radial pulses/+ 2 distal pedal pulses/+2 dorsalis pedis b/l. Normal cap refill. No cyanosis noted to upper extremity nails and lower extremity toes nails. Course Course Course Narrative: 14pm - chest x-ray revealed bilateral streaky ground-glass opacities slightly increased since recent study on 05/01/2021 and low lung volumes and poor inspiration otherwise no other acute processes were noted. - EKG normal sinus rhythm with flattened T-waves change when compared to prior EKG in December 2020. No EKG was performed yesterday. - labs reviewed and patient's D-dimer decreased to 246 when compared to 2 days ago. Random glucose 137. Ferritin 321. AST 37. LDH 473. Troponins negative. Patient negative for . Otherwise all other labs are within normal limits. - after the breathing treatment the patient's exam is unchanged and now she is at 4 L of nasal cannula oxygen at 89-90%. Therefore patient will need to be admitted for COVID-19 pneumonia with hypoxia. Patient understands agrees with this plan. Dr. Channing Meeks to admit at this time. Patient understands agrees with this plan. MDM - SOB/Dyspnea MDM Narrative Medical decision making narrative: 12:10pm - 30-year-old female who was recently diagnosed with COVID-19 on 04/22/2021 presenting to the ED with complaints of fevers up to 102, dry cough, worsening shortness of breath/dyspnea on exertion/orthopnea with associated chest pain worse with coughing and deep inspiration. Reports she is taking [id number] Motrin Tylenol and the meds that she was given when she was seen here on 05/01/2021 which include albuterol inhaler, Tessalon Perles, Tylenol, nasal spray and doxycycline and no symptomatic relief. She had a full workup on 05/01/2021 which included a CTA of her chest which was negative for PE although revealed multifocal pneumonia no evidence of effusions or any other acute processes. Reports that she is not vaccinated to COVID or flu vaccine. Vital signs reviewed and patient hypotensive/tachycardic and hypoxic at 90 through 94% on room air and occasionally drops into the 80s intermittently therefore placed on 2 L of nasal cannula oxygen. On exam patient is in acute respiratory distress with decreased breath sounds and accessory muscle usage noted and tracheal tugging abdominal retractions. Although no wheezes/rales/rhonchi noted. Patient also has reproducible anterior chest wall tenderness. Abdomen is soft and nontender. No lower extremity edema or calf tenderness is noted. Therefore at this time labs, EKG, chest x-ray, blood cultures, lactic acid. A L of IV fluids, 1 g of Rocephin, 125 mg of Solu-Medrol, 2 g of magnesium and an hour long breathing treatment along with 10 mg of Robitussin with codeine ordered at this time and patient will be placed on a alarm security or surveillance monitor will re-evaluate. Medical Records Attestation: I reviewed the patient's medical records. Lab Data Attestation: I reviewed the patient's lab results. Result diagrams: 05/03/21 12:42 05/03/21 12:42 Labs: Lab Results 05/03/21 05/03/21 05/03/21 Range/Units 12:42 12:42 12:42 WBC 6.1 (4.8-10.8) X10*3/uL RBC 4.38 (4.20-5.50) X10*6/uL Hgb 11.7 L (12.0-16.0) g/dl Hct 35.6 L (37.0-47.0) % MCV 81.3 (80.0-98.0) fL MCH 26.7 L (27.0-33.0) pg MCHC 32.9 (31.0-35.0) g/dl RDW 17.0 H (11.0-16.0) % Plt Count 167 (160-400) X10*3/uL MPV 11.4 (9.4-12.3) fL Immature Gran % (Auto) 0.8 H (0.0-0.4) % Neut % (Auto) 79.2 H (45-73) % Lymph % (Auto) 17.8 L (20-40) % [place] % (Auto) 2.0 (2-11) % Eos % (Auto) 0.0 (0-4) % Baso % (Auto) 0.2 (0-2) % Lymph # (Auto) 1.1 L (1.2-4.9) X10*3/uL [place] # (Auto) 0.1 (0.1-1.2) X10*3/uL Eos # (Auto) 0.0 (0.0-0.4) X10*3/uL Baso # (Auto) 0.0 (0.0-0.2) X10*3/uL Abs Immat Gran (auto) 0.05 H (0.00-0.03) X10*3/uL Absolute Neuts (auto) 4.9 (2.0-8.3) x10*3/uL Absolute Nucleated RBC 0.000 (0.0-0.012) X10*3/uL Nucleated RBC % (auto) 0.0 (0.0-0.2) /100WBC ESR (0-20) MM/HR PT 15.8 H (9.9-13.0) SEC INR 1.4 H (0.9-1.1) D-Dimer High Sensitivty 246 NG/ML Sodium 142 (135-145) mmol/L Potassium 3.6 (3.3-5.1) mmol/L Chloride 107 (96-108) mmol/L Carbon Dioxide 26 (22-29) mmol/L Anion Gap 13 (12-20) BUN 8 L (9-16) mg/dL Creatinine 0.78 (0.5-1.4) mg/dL Estim Creat Clear Calc 96.6 Estimated GFR > 60 Random Glucose 137 H (60-115) mg/dL Lactic Acid (0.5-2.0) mmol/L Calcium 8.5 (8.4-10.2) mg/dL Magnesium 2.0 (1.6-2.6) mg/dL Ferritin 321 H (10-122) ng/mL Total Bilirubin 0.5 (0.0-1.0) mg/dL AST 37 H (5-31) U/L ALT 24 (0-31) U/L Alkaline Phosphatase 53 (39-117) U/L Lactate Dehydrogenase 473 H (122-220) U/L Total Creatine Kinase (26-140) U/L Troponin I High Sens (<3.5-17.0) ng/L C-Reactive Protein 17.12 H (< or = 0.50) mg/dL B-Natriuretic Peptide (<100) pg/mL Total Protein 6.9 (6.5-8.0) g/dL Albumin 3.8 (3.5-5.0) g/dL Procalcitonin ng/mL Beta HCG, Quant < 2 mIU/mL 05/03/21 05/03/21 05/03/21 Range/Units 12:43 12:43 12:43 WBC (4.8-10.8) X10*3/uL RBC (4.20-5.50) X10*6/uL Hgb (12.0-16.0) g/dl Hct (37.0-47.0) % MCV (80.0-98.0) fL MCH (27.0-33.0) pg MCHC (31.0-35.0) g/dl RDW (11.0-16.0) % Plt Count (160-400) X10*3/uL MPV (9.4-12.3) fL Immature Gran % (Auto) (0.0-0.4) % Neut % (Auto) (45-73) % Lymph % (Auto) (20-40) % [place] % (Auto) (2-11) % Eos % (Auto) (0-4) % Baso % (Auto) (0-2) % Lymph # (Auto) (1.2-4.9) X10*3/uL [place] # (Auto) (0.1-1.2) X10*3/uL Eos # (Auto) (0.0-0.4) X10*3/uL Baso # (Auto) (0.0-0.2) X10*3/uL Abs Immat Gran (auto) (0.00-0.03) X10*3/uL Absolute Neuts (auto) (2.0-8.3) x10*3/uL Absolute Nucleated RBC (0.0-0.012) X10*3/uL Nucleated RBC % (auto) (0.0-0.2) /100WBC ESR 77 H (0-20) MM/HR PT (9.9-13.0) SEC INR (0.9-1.1) D-Dimer High Sensitivty NG/ML Sodium (135-145) mmol/L Potassium (3.3-5.1) mmol/L Chloride (96-108) mmol/L Carbon Dioxide (22-29) mmol/L Anion Gap (12-20) BUN (9-16) mg/dL Creatinine (0.5-1.4) mg/dL Estim Creat Clear Calc Estimated GFR Random Glucose (60-115) mg/dL Lactic Acid 1.8 (0.5-2.0) mmol/L Calcium (8.4-10.2) mg/dL Magnesium (1.6-2.6) mg/dL Ferritin (10-122) ng/mL Total Bilirubin (0.0-1.0) mg/dL AST (5-31) U/L ALT (0-31) U/L Alkaline Phosphatase (39-117) U/L Lactate Dehydrogenase (122-220) U/L Total Creatine Kinase (26-140) U/L Troponin I High Sens < 3.5 (<3.5-17.0) ng/L C-Reactive Protein (< or = 0.50) mg/dL B-Natriuretic Peptide < 10 (<100) pg/mL Total Protein (6.5-8.0) g/dL Albumin (3.5-5.0) g/dL Procalcitonin ng/mL Beta HCG, Quant mIU/mL 05/03/21 05/03/21 Range/Units 12:43 12:43 WBC (4.8-10.8) X10*3/uL RBC (4.20-5.50) X10*6/uL Hgb (12.0-16.0) g/dl Hct (37.0-47.0) % MCV (80.0-98.0) fL MCH (27.0-33.0) pg MCHC (31.0-35.0) g/dl RDW (11.0-16.0) % Plt Count (160-400) X10*3/uL MPV (9.4-12.3) fL Immature Gran % (Auto) (0.0-0.4) % Neut % (Auto) (45-73) % Lymph % (Auto) (20-40) % [place] % (Auto) (2-11) % Eos % (Auto) (0-4) % Baso % (Auto) (0-2) % Lymph # (Auto) (1.2-4.9) X10*3/uL [place] # (Auto) (0.1-1.2) X10*3/uL Eos # (Auto) (0.0-0.4) X10*3/uL Baso # (Auto) (0.0-0.2) X10*3/uL Abs Immat Gran (auto) (0.00-0.03) X10*3/uL Absolute Neuts (auto) (2.0-8.3) x10*3/uL Absolute Nucleated RBC (0.0-0.012) X10*3/uL Nucleated RBC % (auto) (0.0-0.2) /100WBC ESR (0-20) MM/HR PT (9.9-13.0) SEC INR (0.9-1.1) D-Dimer High Sensitivty NG/ML Sodium (135-145) mmol/L Potassium (3.3-5.1) mmol/L Chloride (96-108) mmol/L Carbon Dioxide (22-29) mmol/L Anion Gap (12-20) BUN (9-16) mg/dL Creatinine (0.5-1.4) mg/dL Estim Creat Clear Calc Estimated GFR Random Glucose (60-115) mg/dL Lactic Acid (0.5-2.0) mmol/L Calcium (8.4-10.2) mg/dL Magnesium (1.6-2.6) mg/dL Ferritin (10-122) ng/mL Total Bilirubin (0.0-1.0) mg/dL AST (5-31) U/L ALT (0-31) U/L Alkaline Phosphatase (39-117) U/L Lactate Dehydrogenase (122-220) U/L Total Creatine Kinase 83 (26-140) U/L Troponin I High Sens (<3.5-17.0) ng/L C-Reactive Protein (< or = 0.50) mg/dL B-Natriuretic Peptide (<100) pg/mL Total Protein (6.5-8.0) g/dL Albumin (3.5-5.0) g/dL Procalcitonin 0.06 ng/mL Beta HCG, Quant mIU/mL Imaging Data Chest x-ray: Attestation: I personally reviewed and interpreted this imaging study as follows: Radiologist's impression: FINDINGS: There are low lung volumes with inspiration to the seventh posterior intercostal spaces. Bilateral streaky groundglass opacities are slightly increased. There is no confluent lobar or segmental airspace consolidation or effusion. No pneumothorax or pneumomediastinum. The vascularity is normal. The heart is normal in size. XR/XR chest 1V IMPRESSION: Bilateral streaky groundglass opacities slightly increased since recent study 05/01/2021. Low lung volumes/poor inspiration. ECG Data Attestation: I personally reviewed and interpreted this ECG as follows: ECG interpretation date: 05/03/21 ECG interpretation time: 12:19 Interpretation: Normal sinus rhythm with ventricular rate of 96 with a normal [place] interval although patient noted to have flat T-waves although no acute ischemic changes. This is changed when compared to prior EKG 12/21/2020 she had T-waves at that point. She did not have an EKG yesterday to compare to. Critical Care Time Critical Care Time Critical Care Time: Yes Total Critical Care Time: 60 Attestation: I personally attest to this time spent taking care of the patient Discharge Plan Discharge Clinical Impression: COVID-19, Pneumonia due to 2019 novel coronavirus, Hypoxia, Acquired respiratory distress syndrome Patient Disposition: Admitted As Inpatient
[2021-05-03 13:46] LABS: Procalcitonin 0.06 ng/mL
[2021-05-03 13:49] LABS: Lactate Dehydrogenase 473 U/L (122-220)
[2021-05-03] MEDS: Magnesium Sulfate/H2O 2 GM/50 ML PIGGYBACK IV (14:00)
[2021-05-03 14:11] LABS: Ferritin 321 ng/mL (10-122); HCG Quantitative < 2 mIU/mL
[2021-05-03 14:15] LABS: Erythrocyte Sedimentation Rate 77 MM/HR (0-20)
[2021-05-03 14:20] LABS: D Dimer High Sensitivity 246 NG/ML
[2021-05-03 14:20] LABS: Troponin-I High Sensitivity < 3.5 ng/L (<3.5-17.0)
[2021-05-03 14:25] LABS: C Reactive Protein 17.12 mg/dL (< or = 0.50)
--- NOTE | 2021-05-03 14:44 | PHA.MEDREC ---
Pharmacy Consult ? Medication Reconciliation Pharmacy has completed the medication reconciliation. There are no remarkable issues for provider's attention. Patient reports taking the medication prescribed on 05/01. Denise Figueroa, AlexaD
--- NOTE | 2021-05-03 16:14 | P.HPHOSP_ITS ---
History of Present Illness Date of Service: 05/03/21 Chief Complaint: shortness of breath 30-year-old unvaccinated female presents to the ER complaints of worsening shortness of breath. She was seen 48 hours previously and diagnosed with COVID- 19. X-ray at that time showed mild bibasilar infiltrates but patient was not hypoxic. She opted to be DC to home. Over the next 48 hours, she became worse and presented back to ER. Chest x-ray markedly worse with diffuse patchy bilateral infiltrates. Sats 89-90% on 4 L. No history of asthma or tobacco abuse. She will be admitted for IV steroids and supplemental O2 Review of Systems Review of Systems: denies chest pain Admits to shortness of breath at rest Denies nausea vomiting diarrhea PMFSH Medical History SHMUEL (generalized anxiety disorder) Mild depression Obese Pre-op evaluation Family History Father Diabetes Hypertension Chronic mental illness Depression Mother No problems noted. Paternal Grandmother Pneumonia Paternal Grandfather Throat cancer Suicide Family/Other FH: mental illness Surgical History History of appendectomy History of eye surgery Social History Housing: Apartment Alcohol intake: former Patient Tobacco Use Status: Former Tobacco user Tobacco use type: Cigarette e-Cigarette/Vaping Use: Never Used Second Hand Smoke Exposure: No Advance Directives: No Advance Directives Information Provided: No Patient : No service: No Current occupational status: employed Meds Allergies Allergy/AdvReac Type Severity Reaction Status Date / Time sumatriptan [Sumatriptan] Allergy Unknown FACIAL Verified 12/20/20 12:58 SWELLING THROAT TIGHTNESS Active Medications: Current Medications Acetaminophen (Acetaminophen 325 Mg Tablet) 650 mg PO Q6H PRN PRN Reason: pain or fever Albuterol Sulfate (Albuterol Sulfate (0.083%) 2.5 Mg/3 Ml Vial.Neb) 2.5 mg IN RACHEL RQ4H WHILE AWAKE MALINA Benzonatate (Benzonatate 100 Mg Capsule) 200 mg PO TID PRN PRN Reason: cough Enoxaparin Sodium (Enoxaparin Sodium 40 Mg/0.4 Ml Syringe) 40 mg SUBCUT Q24H [facility] Famotidine (Famotidine/Pf 20 Mg/2 Ml Vial) 20 mg IVPUSH BID@1000,2200 [facility] Doxycycline Hyclate 100 mg/ (Sodium Chloride) 250 mls @ 166.67 mls/hr IV BID@1000,2200 [facility] Pharmacy Consult (Consult Rx Perform Med Rec) 1 each MISCELLANE ONCE PRN PRN Reason: Consult order Sodium Chloride (0.9 % Sodium Chloride Flush 3 Ml Syringe) 3 ml IVFLUSH QSHIFT [facility] Physical Exam Vital Signs and Narrative: Vital Signs: Last Vital Signs Temp 98.6 F 05/03/21 13:32 Pulse 109 H 05/03/21 13:32 Resp 19 05/03/21 13:32 BP 99/52 L 05/03/21 13:32 Pulse Ox 90 L 05/03/21 14:07 Oxygen Flow Rate 2 05/03/21 12:08 BMI result Body Mass Index 25.0 Const: Other: awake alert oriented x3. Able to speak in short sentences in a semi-Sutton's position Resp: Other: diminished throughout with scant inspiratory crackles lower vitale. There are diffuse expiratory wheezes noted Cardio: Other: No S4; positive S1-S2; no S3 murmurs rubs or gallops GI: Other: soft nontender nondistended with normoactive bowel sounds x4 quadrants. no appreciable hepatosplenomegaly Neuro: Other: cranial nerves 2-12 grossly intact as tested. Motor is 5/5 all extremities. Sensation intact. Cognition is appropriate Extrem: Other: no edema bilaterally Results Labs CBC and Chem 7: 05/03/21 12:42 05/03/21 12:42 Labs: Laboratory Results - last 24 hr 05/03/21 05/03/21 05/03/21 12:42 12:42 12:42 MCV 81.3 MCH 26.7 L MCHC 32.9 RDW 17.0 H Plt Count 167 MPV 11.4 Immature Gran % (Auto) 0.8 H Neut % (Auto) 79.2 H Lymph % (Auto) 17.8 L [place] % (Auto) 2.0 Eos % (Auto) 0.0 Baso % (Auto) 0.2 Lymph # (Auto) 1.1 L [place] # (Auto) 0.1 Eos # (Auto) 0.0 Baso # (Auto) 0.0 Abs Immat Gran (auto) 0.05 H Absolute Neuts (auto) 4.9 Absolute Nucleated RBC 0.000 Nucleated RBC % (auto) 0.0 ESR PT 15.8 H INR 1.4 H D-Dimer High Sensitivty 246 Anion Gap 13 Estim Creat Clear Calc 96.6 Estimated GFR > 60 Random Glucose 137 H Lactic Acid Calcium 8.5 Magnesium 2.0 Ferritin 321 H Total Bilirubin 0.5 AST 37 H ALT 24 Alkaline Phosphatase 53 Lactate Dehydrogenase 473 H Total Creatine Kinase Troponin I High Sens C-Reactive Protein 17.12 H B-Natriuretic Peptide Total Protein 6.9 Albumin 3.8 Procalcitonin Beta HCG, Quant < 2 05/03/21 05/03/21 05/03/21 12:43 12:43 12:43 MCV MCH MCHC RDW Plt Count MPV Immature Gran % (Auto) Neut % (Auto) Lymph % (Auto) [place] % (Auto) Eos % (Auto) Baso % (Auto) Lymph # (Auto) [place] # (Auto) Eos # (Auto) Baso # (Auto) Abs Immat Gran (auto) Absolute Neuts (auto) Absolute Nucleated RBC Nucleated RBC % (auto) ESR 77 H PT INR D-Dimer High Sensitivty Anion Gap Estim Creat Clear Calc Estimated GFR Random Glucose Lactic Acid 1.8 Calcium Magnesium Ferritin Total Bilirubin AST ALT Alkaline Phosphatase Lactate Dehydrogenase Total Creatine Kinase Troponin I High Sens < 3.5 C-Reactive Protein B-Natriuretic Peptide < 10 Total Protein Albumin Procalcitonin Beta HCG, Quant 05/03/21 05/03/21 12:43 12:43 MCV MCH MCHC RDW Plt Count MPV Immature Gran % (Auto) Neut % (Auto) Lymph % (Auto) [place] % (Auto) Eos % (Auto) Baso % (Auto) Lymph # (Auto) [place] # (Auto) Eos # (Auto) Baso # (Auto) Abs Immat Gran (auto) Absolute Neuts (auto) Absolute Nucleated RBC Nucleated RBC % (auto) ESR PT INR D-Dimer High Sensitivty Anion Gap Estim Creat Clear Calc Estimated GFR Random Glucose Lactic Acid Calcium Magnesium Ferritin Total Bilirubin AST ALT Alkaline Phosphatase Lactate Dehydrogenase Total Creatine Kinase 83 Troponin I High Sens C-Reactive Protein B-Natriuretic Peptide Total Protein Albumin Procalcitonin 0.06 Beta HCG, Quant Imaging Radiologist's Impressions: Impressions Chest X-Ray 05/03/21 13:03 IMPRESSION: Bilateral streaky groundglass opacities slightly increased since recent study 05/01/2021. Low lung volumes/poor inspiration. Assessment and Plan (1) COVID-19: Status: Acute (2) Pneumonia due to 2019 novel coronavirus: Status: Acute (3) Hypoxia: Status: Acute 30-year-old unvaccinated female presents with worsening COVID-19 symptoms over the last 48-72 hours. Onset of symptoms was 10 days remote. X- ray consistent with worsening atypical pneumonia. Worsening O2 requirement. 1. Covid-19 pneumonia IV Decadron/Pepcid...albuterol nebs prn. Titrate O2 to maintain sats>/= 92% ID consult 2. 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 Will trend daily to ensure stability Full Code Lovenox Quality Stroke Does the patient have a stroke diagnosis?: No VTE Prior VTE?: No VTE Risk Level:: Medical - moderate - high VTE Device Contraindication: Treatment Not Indicated VTE Drug Contraindication: N/A - Med Ordered
[2021-05-03] MEDS: Enoxaparin Sodium 40 MG/0.4 ML SYRINGE SUBCUT (16:52)
--- NOTE | 2021-05-03 16:54 | PC.NURSE ---
pt with 4L O2 via nc, SaO2 94%, RR 36. HR 87. Very SOB wth any exertion .
--- NOTE | 2021-05-03 16:55 | PC.NURSE ---
pt states her mother Rosie Gaona can be privy to any information about the patient.
[2021-05-03] MEDS: Albuterol Sulfate (0.083%) 2.5 MG/3 ML VIAL.NEB INHALE (19:49)
[2021-05-03 21:20] LABS: COVID-19 Test Positive (Negative)
[2021-05-03] MEDS: Famotidine/PF 20 MG/2 ML VIAL IVPUSH (22:46)
[2021-05-03] MEDS: Doxycycline Hyclate 100 MG in 0.9 % Sodium Chloride 250 ML 166.67 MG IV (22:47)
[2021-05-04] VITALS (11 sets, daily range): BP systolic 100–121; BP diastolic 55–73; PULSE 69–86; RESP 18–36; TEMP 36.4–37.1; O2SAT 91–95
[2021-05-04] MEDS: 0.9 % Sodium Chloride Flush 3 ML SYRINGE IVFLUSH ×4 (00:40→21:52)
--- NOTE | 2021-05-04 02:59 | PC.NURSE ---
Report given to Magdy BERGERON on [facility].
[2021-05-04 06:30] LABS: MANUAL DIFF FLAG NO
[2021-05-04 06:53] LABS: Hematocrit 33.9 % (37.0-47.0); Hemoglobin 11.1 g/dl (12.0-16.0); Imm Gran Abs Auto 0.07 X10*3/uL (0.00-0.03); Imm Gran Pct Auto 0.9 % (0.0-0.4); Lymphocytes Absolute Auto 0.6 X10*3/uL (1.2-4.9); Lymphocytes Percent Auto 7.8 % (20-40); Mean Corpuscular HGB Conc 32.7 g/dl (31.0-35.0); Mean Corpuscular Hemoglobin 26.6 pg (27.0-33.0); Mean Corpuscular Volume 81.3 fL (80.0-98.0); Mean Platelet Volume 10.7 fL (9.4-12.3); Monocytes Absolute Auto 0.2 X10*3/uL (0.1-1.2); Monocytes Percent Auto 2.3 % (2-11); Neutrophils Absolute Auto 6.7 x10*3/uL (2.0-8.3); Platelet Count 196 X10*3/uL (160-400); Red Blood Count 4.17 X10*6/uL (4.20-5.50); Red Cell Distribution Width 17.3 % (11.0-16.0); White Blood Count 7.5 X10*3/uL (4.8-10.8)
[2021-05-04 06:56] LABS: Alanine Aminotransferase 23 U/L (0-31); Albumin Level 3.5 g/dL (3.5-5.0); Alkaline Phosphatase 50 U/L (39-117); Anion Gap 11 (12-20); Aspartate Amino Transferase 27 U/L (5-31); Bilirubin Total 0.4 mg/dL (0.0-1.0); Blood Urea Nitrogen 10 mg/dL (9-16); Calcium 8.5 mg/dL (8.4-10.2); Carbon Dioxide 24 mmol/L (22-29); Chloride 111 mmol/L (96-108); Creatinine Clr Calc Pharmacy 123.5; Estimated Glomerular Filt Rate > 60; Glucose Fasting 145 mg/dL (60-99); Potassium 3.9 mmol/L (3.3-5.1); Sodium 142 mmol/L (135-145); Total Protein 6.6 g/dL (6.5-8.0)
[2021-05-04] MEDS: Albuterol Sulfate (0.083%) 2.5 MG/3 ML VIAL.NEB INHALE ×3 (08:27→21:04)
--- NOTE | 2021-05-04 08:32 | P.CDIC_ITS ---
CDI Concurrent Query Documentation Clarification: PHYSICIAN'S DOCUMENTATION REQUEST Date of Query: 05/04/21 0832 Patient Name: Kristen Mullins Admit Date: 05/03/21 Dear Doctor, A review of the medical record indicates additional documentation may be needed. Please review below and update the documentation accordingly. Risk Factors/Clinical Indicators/Treatments ED: 05/03- SOB/dyspnea on exertion, chest pain with deep inspiration and cough. RA onto 2 liters NC due to sats intermittently drop into the 80's increased oxygen to 4 liters with oxygen now at 89-90%, pulse ox 90L. Accessory muscle use, tracheal fogging, upper respiratory symptoms. Hypoxia, Covid 19. If possible, please further clarify the type and acuity of respiratory failure: Respiratory distress: Type: * Respiratory failure with hypoxia * Respiratory failure with hypercapnia * Other (please specify) * Unable to determine Acuity: * Acute * Chronic * Acute on chronic Use of terms such as suspected, likely, concern for, or probable (associated with a specific diagnosis that is being evaluated, monitored, or treated as if it exists) are acceptable and can be coded in the inpatient setting, when documented at the time of discharge. Thank you, Kylee Adams, [facility] [place], CDIS Extension: [phone] Please use your independent medical judgment in providing your response. THIS QUERY IS PART OF THE PERMANENT MEDICAL RECORD Provider Response: Other Other Diagnosis: respiratory failure with hypoxia; acute secondary to COVID-19
--- NOTE | 2021-05-04 09:03 | MHC.CM.PN ---
CM attempted to reach Patient by phone at cell # [phone] and room Ext. [phone], but was unable to do so (Covid (+). CM spoke with Patient's Mother/Rosie @ [phone]. Patient lives in a house with her Boyfriend and 3 children and she is functionally independent and working. Home/no services is the goal for dc and CM has initiated and will follow for dc planning. PCP is Dr. Janet Alanis.
[2021-05-04] MEDS: methylPREDNISolone Sod Succ 125 MG/2 ML VIAL 60 MG IVPUSH (09:53)
[2021-05-04] MEDS: Famotidine/PF 20 MG/2 ML VIAL IVPUSH ×2 (09:53→21:52)
[2021-05-04] MEDS: Doxycycline Hyclate 100 MG in 0.9 % Sodium Chloride 250 ML 166.67 MG IV ×2 (09:54→21:52)
--- NOTE | 2021-05-04 14:36 | P.CNID_ITS ---
History of Present Illness Data of Consult Service Date: 05/04/21 Requesting physician: Channing Meeks Primary Care Provider: Janet Alanis MD [facility] Reason for consult: shortness of breath She presents with 12 days of shortness of breath and cough Her boyfriend was diagnosed with COVID and she has it now she says She is on 6 liters oxygen Review of Systems Review of Systems: Yes all other systems are reviewed and are negative PMFSH Past Medical History Medical History SHMUEL (generalized anxiety disorder) Mild depression Obese Pre-op evaluation Family History Family History Father Diabetes Hypertension Chronic mental illness Depression Mother No problems noted. Paternal Grandmother Pneumonia Paternal Grandfather Throat cancer Suicide Family/Other FH: mental illness Surgical History Surgical History History of appendectomy History of eye surgery Social History Social History Housing: Apartment Alcohol intake: current Alcohol intake frequency: 0-2 drinks per day Alcohol type: wine Patient Tobacco Use Status: Former Tobacco user Tobacco use type: Cigarette Smoked in Last 30 Days: Yes e-Cigarette/Vaping Use: Never Used Second Hand Smoke Exposure: No Use of substances other than those prescribed or required for medical reasons: No Currently Displaying Signs/Symptoms of Drug Intoxication Withdrawal: No Advance Directives: No Advance Directives Information Provided: No Do you have thoughts of harming others: None Do you have a plan to hurt others: No Plan Patient : No service: No Current occupational status: employed Meds Allergies Allergy/AdvReac Type Severity Reaction Status Date / Time sumatriptan [Sumatriptan] Allergy Unknown FACIAL Verified 12/20/20 12:58 SWELLING THROAT TIGHTNESS Active Medications: Current Medications Acetaminophen (Acetaminophen 325 Mg Tablet) 650 mg PO Q6H PRN PRN Reason: pain or fever Albuterol Sulfate (Albuterol Sulfate (0.083%) 2.5 Mg/3 Ml Vial.Neb) 2.5 mg INHALE RQ4H WHILE AWAKE [facility] Last Admin: 05/04/21 10:53 Dose: Not Given Documented by: Benzonatate (Benzonatate 100 Mg Capsule) 200 mg PO TID PRN PRN Reason: cough Enoxaparin Sodium (Enoxaparin Sodium 40 Mg/0.4 Ml Syringe) 40 mg SUBCUT Q24H [facility] Last Admin: 05/03/21 16:52 Dose: 40 mg Documented by: Famotidine (Famotidine/Pf 20 Mg/2 Ml Vial) 20 mg IVPUSH BID@1000,2200 [facility] Last Admin: 05/04/21 09:53 Dose: 20 mg Documented by: Doxycycline Hyclate 100 mg/ (Sodium Chloride) 250 mls @ 166.67 mls/hr IV BID@1000,2200 [facility] Last Infusion: 05/04/21 12:10 Dose: Infused Documented by: Methylprednisolone Sodium Succinate (Methylprednisolone Sod Succ 125 Mg/2 Ml Vial) 60 mg IVPUSH DAILY [facility] Last Admin: 05/04/21 09:53 Dose: 60 mg Documented by: Pharmacy Consult (Consult Rx Perform Med Rec) 1 each MISCELLANE ONCE PRN PRN Reason: Consult order Sodium Chloride (0.9 % Sodium Chloride Flush 3 Ml Syringe) 3 ml IVFLUSH QSHIFT [facility] Last Admin: 05/04/21 10:05 Dose: 3 ml Documented by: Physical Exam Vital Signs: Vital Signs: Last Vital Signs Temp 98.1 F 05/04/21 11:22 Pulse 84 05/04/21 11:22 Resp 18 05/04/21 11:22 BP 112/73 05/04/21 11:22 Pulse Ox 91 L 05/04/21 11:22 Oxygen Flow Rate 2 05/03/21 12:08 BMI result Body Mass Index 25.0 Const: General: cooperative Eyes: General: appearance normal, both eyes and all related structures Resp: Effort & Inspection: abnormal respiratory pattern Cardio: Rate: regular rate Rhythm: regular rhythm GI: Palpation (GI): nontender Extrem: General: Yes normal to inspection Results Labs CBC & Chem 7: 05/04/21 06:09 05/04/21 06:09 Labs: Short CBC 05/04/21 Range/Units 06:09 WBC 7.5 (4.8-10.8) X10*3/uL Hgb 11.1 L (12.0-16.0) g/dl Hct 33.9 L (37.0-47.0) % Plt Count 196 (160-400) X10*3/uL BMP 05/04/21 06:09 Sodium 142 Potassium 3.9 Chloride 111 H Carbon Dioxide 24 BUN 10 Creatinine 0.61 Calcium 8.5 Liver Function 05/04/21 Range/Units 06:09 Total Bilirubin 0.4 (0.0-1.0) mg/dL AST 27 (5-31) U/L ALT 23 (0-31) U/L Alkaline Phosphatase 50 (39-117) U/L Albumin 3.5 (3.5-5.0) g/dL Assessment and Plan (1) Pneumonia due to 2019 novel coronavirus: Status: Acute She has shortness of breath She is on 6 liters She is day 12 Would continue oxygen Dexamethasone 6 mg daily There is no need for Remdesivir She may get baricitinib since CRP increased
--- NOTE | 2021-05-04 16:12 | P.PNIM_ITS ---
Subjective Subjective Date of Service: 05/04/21 Interval History: no acute of [place] overnight; still short of breath at rest. Speaking in short sentences Review of Systems denies chest pain Admits shortness of breath at rest Denies nausea vomiting diarrhea Physical Exam Vital Signs: Vital Signs: Last Vital Signs Temp 98.7 F 05/04/21 15:18 Pulse 86 05/04/21 15:34 Resp 18 05/04/21 15:18 BP 111/62 05/04/21 15:18 Pulse Ox 93 05/04/21 15:18 Oxygen Flow Rate 2 05/03/21 12:08 BMI result Body Mass Index 25.0 Const: Other: awake alert oriented x3. Able to speak in short sentences in a semi-Sutton's position Resp: Other: diminished throughout with scant inspiratory crackles lower vitale. There are diffuse expiratory wheezes noted Cardio: Other: No S4; positive S1-S2; no S3 murmurs rubs or gallops GI: Other: soft nontender nondistended with normoactive bowel sounds x4 quadrants. no appreciable hepatosplenomegaly Neuro: Other: cranial nerves 2-12 grossly intact as tested. Motor is 5/5 all extremities. Sensation intact. Cognition is appropriate Extrem: Other: no edema bilaterally Objective Data Active Medications Acetaminophen (Acetaminophen 325 Mg Tablet) 650 mg PO Q6H PRN PRN Reason: pain or fever Albuterol Sulfate (Albuterol Sulfate (0.083%) 2.5 Mg/3 Ml Vial.Neb) 2.5 mg INHALE RQ4H WHILE AWAKE [facility] Last Admin: 05/04/21 15:34 Dose: 2.5 mg Documented by: AYANA Benzonatate (Benzonatate 100 Mg Capsule) 200 mg PO TID PRN PRN Reason: cough Enoxaparin Sodium (Enoxaparin Sodium 40 Mg/0.4 Ml Syringe) 40 mg SUBCUT Q24H [facility] Last Admin: 05/03/21 16:52 Dose: 40 mg Documented by: RODERICK Famotidine (Famotidine/Pf 20 Mg/2 Ml Vial) 20 mg IVPUSH BID@1000,2200 [facility] Last Admin: 05/04/21 09:53 Dose: 20 mg Documented by: SETH Doxycycline Hyclate 100 mg/ (Sodium Chloride) 250 mls @ 166.67 mls/hr IV BID@1 000,2200 [facility] Last Infusion: 05/04/21 12:10 Dose: 166.67 mls/hr Documented by: SETH Methylprednisolone Sodium Succinate (Methylprednisolone Sod Succ 125 Mg/2 Ml Vial) 60 mg IVPUSH DAILY [facility] Last Admin: 05/04/21 09:53 Dose: 60 mg Documented by: SETH Pharmacy Consult (Consult Rx Perform Med Rec) 1 each MISCELLANE ONCE PRN PRN Reason: Consult order Sodium Chloride (0.9 % Sodium Chloride Flush 3 Ml Syringe) 3 ml IVFLUSH QSHIFT [facility] Last Admin: 05/04/21 10:05 Dose: 3 ml Documented by: SETH Labs CBC & Chem 7: 05/04/21 06:09 05/04/21 06:09 Labs: Laboratory Results - last 24 hr 05/03/21 05/04/21 05/04/21 21:00 06:09 06:09 MCV 81.3 MCH 26.6 L MCHC 32.7 RDW 17.3 H Plt Count 196 MPV 10.7 Immature Gran % (Auto) 0.9 H Neut % (Auto) 89.0 H Lymph % (Auto) 7.8 L [place] % (Auto) 2.3 Eos % (Auto) 0.0 Baso % (Auto) 0.0 Lymph # (Auto) 0.6 L [place] # (Auto) 0.2 Eos # (Auto) 0.0 Baso # (Auto) 0.0 Abs Immat Gran (auto) 0.07 H Absolute Neuts (auto) 6.7 Absolute Nucleated RBC 0.000 Nucleated RBC % (auto) 0.0 Anion Gap 11 L Estim Creat Clear Calc 123.5 Estimated GFR > 60 Fasting Glucose 145 H Calcium 8.5 Total Bilirubin 0.4 AST 27 ALT 23 Alkaline Phosphatase 50 Total Protein 6.6 Albumin 3.5 COVID-19 (GAEL) Positive A COVID-19 Clin Com See Note Microbiology Microbiology Results: Microbiology 05/03/21 13:08 Blood Culture - Preliminary Blood - Venous No growth after 24 hours. 05/03/21 12:43 Blood Culture - Preliminary Blood - Venous No growth after 24 hours. Assessment and Plan (1) Acute respiratory failure with hypoxia: Status: Acute (2) COVID-19: Status: Acute (3) Pneumonia due to 2019 novel coronavirus: Status: Acute Assessment and Plan: 30-year-old unvaccinated female presents with worsening COVID-19 symptoms over the last 48-72 hours. Onset of symptoms was 10 days remote. X-ray consistent with worsening atypical pneumonia. Worsening O2 requirement. stable overnight 1. Acute hypoxic respiratory failure secondary to Covid-19 pneumonia IV Decadron/Pepcid...albuterol nebs prn. Titrate O2 to maintain sats>/= 92% Baricitinib if requires high flow 2. 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 Will trend daily to ensure stability Full Code Lovenox Quality Stroke Does the patient have a stroke diagnosis?: No VTE Prior VTE?: No VTE Risk Level:: Medical - moderate - high VTE Device Contraindication: Treatment Not Indicated VTE Drug Contraindication: N/A - Med Ordered
[2021-05-04] MEDS: Enoxaparin Sodium 40 MG/0.4 ML SYRINGE SUBCUT (17:48)
[2021-05-04] MEDS: Morphine Sulfate 2 MG/ML CARTRIDGE IVPUSH (21:42)
[2021-05-04] MEDS: Benzonatate 100 MG CAPSULE 200 MG PO (21:52)
[2021-05-05] VITALS (11 sets, daily range): BP systolic 113–135; BP diastolic 59–72; PULSE 57–89; RESP 17–24; TEMP 36.8–37.2; O2SAT 91–97
[2021-05-05 06:25] LABS: MANUAL DIFF FLAG NO
[2021-05-05 06:30] LABS: Basophils Percent Auto 0.1 % (0-2); Hematocrit 34.1 % (37.0-47.0); Hemoglobin 11.1 g/dl (12.0-16.0); Imm Gran Abs Auto 0.14 X10*3/uL (0.00-0.03); Imm Gran Pct Auto 1.8 % (0.0-0.4); Lymphocytes Absolute Auto 0.8 X10*3/uL (1.2-4.9); Lymphocytes Percent Auto 10.2 % (20-40); Mean Corpuscular HGB Conc 32.6 g/dl (31.0-35.0); Mean Corpuscular Hemoglobin 26.4 pg (27.0-33.0); Mean Corpuscular Volume 81.2 fL (80.0-98.0); Mean Platelet Volume 10.8 fL (9.4-12.3); Monocytes Absolute Auto 0.3 X10*3/uL (0.1-1.2); Monocytes Percent Auto 3.8 % (2-11); NRBC Pct Auto 0.3 /100WBC (0.0-0.2); Neutrophils Absolute Auto 6.4 x10*3/uL (2.0-8.3); Neutrophils Percent Auto 84.1 % (45-73); Platelet Count 244 X10*3/uL (160-400); Red Cell Distribution Width 17.3 % (11.0-16.0); White Blood Count 7.6 X10*3/uL (4.8-10.8)
[2021-05-05 07:00] LABS: Alanine Aminotransferase 20 U/L (0-31); Albumin Level 3.4 g/dL (3.5-5.0); Alkaline Phosphatase 47 U/L (39-117); Anion Gap 10 (12-20); Aspartate Amino Transferase 16 U/L (5-31); Bilirubin Total 0.5 mg/dL (0.0-1.0); Blood Urea Nitrogen 14 mg/dL (9-16); Calcium 8.6 mg/dL (8.4-10.2); Carbon Dioxide 25 mmol/L (22-29); Chloride 112 mmol/L (96-108); Creatinine Clr Calc Pharmacy 112.5; Estimated Glomerular Filt Rate > 60; Glucose Fasting 146 mg/dL (60-99); Potassium 4.2 mmol/L (3.3-5.1); Sodium 143 mmol/L (135-145); Total Protein 6.3 g/dL (6.5-8.0)
[2021-05-05] MEDS: Morphine Sulfate 2 MG/ML CARTRIDGE IVPUSH ×2 (08:43→21:50)
[2021-05-05] MEDS: 0.9 % Sodium Chloride Flush 3 ML SYRINGE IVFLUSH ×3 (08:45→21:52)
[2021-05-05] MEDS: Doxycycline Hyclate 100 MG in 0.9 % Sodium Chloride 250 ML 166.67 MG IV ×2 (08:47→21:51)
[2021-05-05] MEDS: methylPREDNISolone Sod Succ 125 MG/2 ML VIAL 60 MG IVPUSH (08:48)
[2021-05-05] MEDS: Famotidine/PF 20 MG/2 ML VIAL IVPUSH ×2 (08:49→21:52)
[2021-05-05] MEDS: Albuterol Sulfate (0.083%) 2.5 MG/3 ML VIAL.NEB INHALE ×4 (09:21→20:07)
[2021-05-05] MEDS: Enoxaparin Sodium 40 MG/0.4 ML SYRINGE SUBCUT (15:15)
--- NOTE | 2021-05-05 15:23 | P.PNIM_ITS ---
Subjective Subjective Date of Service: 05/05/21 Interval History: no acute events overnight; continues to be short of breath with minimal exertion Review of Systems denies chest pain Admits to shortness of breath with minimal exertion denies nausea vomiting diarrhea Physical Exam Vital Signs: Vital Signs: Last Vital Signs Temp 99.0 F 05/05/21 11:39 Pulse 78 05/05/21 11:43 Resp 23 H 05/05/21 11:39 BP 123/65 05/05/21 11:39 Pulse Ox 96 05/05/21 11:39 Oxygen Flow Rate 2 05/03/21 12:08 BMI result Body Mass Index 25.0 Const: Other: awake alert oriented x3. Able to speak in short sentences in a semi-Sutton's position Resp: Other: diminished throughout with scant inspiratory crackles lower vitale. There are diffuse expiratory wheezes noted Cardio: Other: No S4; positive S1-S2; no S3 murmurs rubs or gallops GI: Other: soft nontender nondistended with normoactive bowel sounds x4 quadrants. no appreciable hepatosplenomegaly Neuro: Other: cranial nerves 2-12 grossly intact as tested. Motor is 5/5 all extremities. Sensation intact. Cognition is appropriate Extrem: Other: no edema bilaterally Objective Data Active Medications Acetaminophen (Acetaminophen 325 Mg Tablet) 650 mg PO Q6H PRN PRN Reason: pain or fever Albuterol Sulfate (Albuterol Sulfate (0.083%) 2.5 Mg/3 Ml Vial.Neb) 2.5 mg INHALE RQ4H WHILE AWAKE [facility] Last Admin: 05/05/21 11:41 Dose: 2.5 mg Documented by: REINA Benzonatate (Benzonatate 100 Mg Capsule) 200 mg PO TID PRN PRN Reason: cough Last Admin: 05/04/21 21:52 Dose: 200 mg Documented by: [place] Enoxaparin Sodium (Enoxaparin Sodium 40 Mg/0.4 Ml Syringe) 40 mg SUBCUT Q24H [facility] Last Admin: 05/04/21 17:48 Dose: 40 mg Documented by: [place] Famotidine (Famotidine/Pf 20 Mg/2 Ml Vial) 20 mg IVPUSH BID@1000,2200 [facility] Last Admin: 05/05/21 08:49 Dose: 20 mg Documented by: AMEYA Doxycycline Hyclate 100 mg/ (Sodium Chloride) 250 mls @ 166.67 mls/hr IV BID@1000,2200 [facility] Last Infusion: 05/05/21 11:38 Dose: 0 mls/hr Documented by: AMEYA Methylprednisolone Sodium Succinate (Methylprednisolone Sod Succ 125 Mg/2 Ml Vial) 60 mg IVPUSH DAILY [facility] Last Admin: 05/05/21 08:48 Dose: 60 mg Documented by: AMEYA Morphine Sulfate (Morphine Sulfate 2 Mg/Ml Cartridge) 2 mg IVPUSH Q4H PRN; Protocol PRN Reason: Shortness of Breath Last Admin: 05/05/21 08:43 Dose: 2 mg Documented by: AMEYA Pharmacy Consult (Consult Rx Perform Med Rec) 1 each MISCELLANE ONCE PRN PRN Reason: Consult order Sodium Chloride (0.9 % Sodium Chloride Flush 3 Ml Syringe) 3 ml IVFLUSH QSHIFT [facility] Last Admin: 05/05/21 08:45 Dose: 3 ml Documented by: AMEYA Labs CBC & Chem 7: 05/05/21 06:05 05/05/21 06:05 Labs: Laboratory Results - last 24 hr 05/05/21 05/05/21 06:05 06:05 MCV 81.2 MCH 26.4 L MCHC 32.6 RDW 17.3 H Plt Count 244 MPV 10.8 Immature Gran % (Auto) 1.8 H Neut % (Auto) 84.1 H Lymph % (Auto) 10.2 L [place] % (Auto) 3.8 Eos % (Auto) 0.0 Baso % (Auto) 0.1 Lymph # (Auto) 0.8 L [place] # (Auto) 0.3 Eos # (Auto) 0.0 Baso # (Auto) 0.0 Abs Immat Gran (auto) 0.14 H Absolute Neuts (auto) 6.4 Absolute Nucleated RBC 0.020 H Nucleated RBC % (auto) 0.3 H Anion Gap 10 L Estim Creat Clear Calc 112.5 Estimated GFR > 60 Fasting Glucose 146 H Calcium 8.6 Total Bilirubin 0.5 AST 16 D ALT 20 Alkaline Phosphatase 47 Total Protein 6.3 L Albumin 3.4 L Microbiology Microbiology Results: Microbiology 05/03/21 13:08 Blood Culture - Preliminary Blood - Venous No growth after 48 hours. 05/03/21 12:43 Blood Culture - Preliminary Blood - Venous No growth after 48 hours. Assessment and Plan (1) Acute respiratory failure with hypoxia: Status: Acute (2) COVID-19: Status: Acute Assessment and Plan: 30-year-old unvaccinated female presents with worsening COVID-19 symptoms over the last 48-72 hours. Onset of symptoms was 10 days remote. X-ray consistent with worsening atypical pneumonia. Worsening O2 requirement. stable overnight 1. Acute hypoxic respiratory failure secondary to Covid-19 pneumonia IV Decadron/Pepcid...albuterol nebs prn. Titrate O2 to maintain sats>/= 92% morphine added for acute distress and anxiety 2. 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 Will trend daily to ensure stability Full Code Lovenox Quality Stroke Does the patient have a stroke diagnosis?: No VTE Prior VTE?: No VTE Risk Level:: Medical - moderate - high VTE Device Contraindication: Treatment Not Indicated VTE Drug Contraindication: N/A - Med Ordered
[2021-05-05] MEDS: Acetaminophen 325 MG TABLET 650 MG PO (15:29)
[2021-05-05] MEDS: Benzonatate 100 MG CAPSULE 200 MG PO ×2 (15:29→21:51)
--- NOTE | 2021-05-05 15:41 | PC.NURSE ---
1500 OOB to commode with assist. Very SOB SAT 84-85% Increased coughing. Tyl and Tessolon given BTB 02 5L via Boyd cath
[2021-05-06] VITALS (12 sets, daily range): BP systolic 107–134; BP diastolic 68–77; PULSE 57–90; RESP 16–22; TEMP 35.9–37.3; O2SAT 94–98
[2021-05-06 06:41] LABS: Hematocrit 33.9 % (37.0-47.0); Hemoglobin 10.9 g/dl (12.0-16.0); Mean Corpuscular HGB Conc 32.2 g/dl (31.0-35.0); Mean Corpuscular Hemoglobin 26.3 pg (27.0-33.0); Mean Corpuscular Volume 81.9 fL (80.0-98.0); Mean Platelet Volume 10.3 fL (9.4-12.3); Platelet Count 273 X10*3/uL (160-400); Red Blood Count 4.14 X10*6/uL (4.20-5.50); Red Cell Distribution Width 17.7 % (11.0-16.0); White Blood Count 6.9 X10*3/uL (4.8-10.8)
[2021-05-06 07:03] LABS: Alanine Aminotransferase 16 U/L (0-31); Albumin Level 3.3 g/dL (3.5-5.0); Alkaline Phosphatase 46 U/L (39-117); Anion Gap 10 (12-20); Aspartate Amino Transferase 12 U/L (5-31); Bilirubin Total 0.5 mg/dL (0.0-1.0); Blood Urea Nitrogen 12 mg/dL (9-16); Calcium 8.4 mg/dL (8.4-10.2); Carbon Dioxide 26 mmol/L (22-29); Chloride 111 mmol/L (96-108); Creatinine Clr Calc Pharmacy 117.7; Estimated Glomerular Filt Rate > 60; Glucose Fasting 125 mg/dL (60-99); Potassium 4.2 mmol/L (3.3-5.1); Sodium 143 mmol/L (135-145); Total Protein 6.2 g/dL (6.5-8.0)
[2021-05-06 07:28] LABS: Band Neutrophils Percent 4 % (3-5); Lymphocytes Absolute Manual 1.2 X10*3/uL (1.2-4.9); Lymphocytes Percent Manual 18 % (20-40); Metamyelocytes Absolute 0.1 X10*3/uL; Metamyelocytes Percent 1 %; Monocytes Absolute Manual 0.4 X10*3/uL (0.1-1.2); Monocytes Percent Manual 6 % (2-11); Neutrophils Absolute Manual 5.2 X10*3/uL (2.0-8.3); Neutrophils Percent Manual 71 % (45-73)
[2021-05-06 07:29] LABS: Hypochromasia 1+ (5-14) /OIF; RBC Morphology NOTED
[2021-05-06 07:31] LABS: Platelet Estimate NORMAL (NORMAL); Platelet Morphology Comment NORMAL
[2021-05-06] MEDS: 0.9 % Sodium Chloride Flush 3 ML SYRINGE IVFLUSH ×3 (09:51→22:02)
[2021-05-06] MEDS: Doxycycline Hyclate 100 MG in 0.9 % Sodium Chloride 250 ML 166.67 MG IV ×2 (09:51→22:02)
[2021-05-06] MEDS: methylPREDNISolone Sod Succ 125 MG/2 ML VIAL 60 MG IVPUSH (09:51)
[2021-05-06] MEDS: Benzonatate 100 MG CAPSULE 200 MG PO ×3 (09:52→22:01)
[2021-05-06] MEDS: Famotidine/PF 20 MG/2 ML VIAL IVPUSH ×2 (09:52→22:01)
[2021-05-06] MEDS: Morphine Sulfate 2 MG/ML CARTRIDGE IVPUSH ×3 (09:52→23:12)
[2021-05-06] MEDS: Albuterol Sulfate (0.083%) 2.5 MG/3 ML VIAL.NEB INHALE ×3 (10:35→19:23)
--- NOTE | 2021-05-06 13:22 | HO.PM.IMPN ---
Subjective Subjective Date of Service: 05/06/21 Interval History: The patient was seen and evaluated this morning Laying in bed, feels short of breath and dyspneic with exertion Reporting episodes of coughing No reported other overnight events. Systemic review: No fever, chills but generalized weakness No chest pain, palpitation dyspnea on exertion, episodes of cough No abdominal pain, nausea or vomiting No urinary symptoms No any rash or wounds Physical Exam Vital Signs: Vital Signs: Last Vital Signs Temp 99.1 F 05/06/21 11:43 Pulse 82 05/06/21 11:43 Resp 20 05/06/21 11:43 BP 123/71 05/06/21 11:43 Pulse Ox 94 05/06/21 11:43 Oxygen Flow Rate 2 05/03/21 12:08 BMI result Body Mass Index 25.0 Const: Other: Constitutional : Alert, oriented, not in distress Neck : Normal inspection, Supple Cardiovascular : RRR, S1 S2, no lower extremity edema Respiratory : decreased bilateral air entry, chest wall moving bilaterally Gastrointestinal: soft, lax, Normal bowel sounds, Non tender Skin : Warm, Dry Neurological : Alert & oriented x3, No focal deficit Objective Data Active Medications Acetaminophen (Acetaminophen 325 Mg Tablet) 650 mg PO Q6H PRN PRN Reason: pain or fever Last Admin: 05/05/21 15:29 Dose: 650 mg Documented by: AMEYA Albuterol Sulfate (Albuterol Sulfate (0.083%) 2.5 Mg/3 Ml Vial.Neb) 2.5 mg INHALE RQ4H WHILE AWAKE [facility] Last Admin: 05/06/21 10:35 Dose: 2.5 mg Documented by: AYANA Benzonatate (Benzonatate 100 Mg Capsule) 200 mg PO TID PRN PRN Reason: cough Last Admin: 05/06/21 09:52 Dose: 200 mg Documented by: MARY Benzonatate (Benzonatate 100 Mg Capsule) 200 mg PO TID [facility] Enoxaparin Sodium (Enoxaparin Sodium 40 Mg/0.4 Ml Syringe) 40 mg SUBCUT Q24H [facility] Last Admin: 05/05/21 15:15 Dose: 40 mg Documented by: AMEYA Famotidine (Famotidine/Pf 20 Mg/2 Ml Vial) 20 mg IVPUSH BID@1000,2200 [facility] Last Admin: 05/06/21 09:52 Dose: 20 mg Documented by: MARY Guaifenesin (Guaifenesin La 600 Mg Tab.Er.12h) 600 mg PO BID [facility] Doxycycline Hyclate 100 mg/ (Sodium Chloride) 250 mls @ 166.67 mls/hr IV BID@1000,2200 [facility] Last Admin: 05/06/21 09:51 Dose: 166.67 mls/hr Documented by: MARY Methylprednisolone Sodium Succinate (Methylprednisolone Sod Succ 125 Mg/2 Ml Vial) 60 mg IVPUSH DAILY [facility] Last Admin: 05/06/21 09:51 Dose: 60 mg Documented by: MARY Morphine Sulfate (Morphine Sulfate 2 Mg/Ml Cartridge) 2 mg IVPUSH Q4H PRN; Protocol PRN Reason: Shortness of Breath Last Admin: 05/06/21 09:52 Dose: 2 mg Documented by: MARY Pharmacy Consult (Consult Rx Perform Med Rec) 1 each MISCELLANE ONCE PRN PRN Reason: Consult order Sodium Chloride (0.9 % Sodium Chloride Flush 3 Ml Syringe) 3 ml IVFLUSH QSHIFT [facility] Last Admin: 05/06/21 09:51 Dose: 3 ml Documented by: MARY Labs CBC & Chem 7: 05/06/21 06:20 05/06/21 06:20 Labs: Laboratory Results - last 24 hr 05/06/21 05/06/21 06:20 06:20 MCV 81.9 MCH 26.3 L MCHC 32.2 RDW 17.7 H Plt Count 273 MPV 10.3 Immature Gran % (Auto) Cancelled Neut % (Auto) Cancelled Lymph % (Auto) Cancelled [place] % (Auto) Cancelled Eos % (Auto) Cancelled Baso % (Auto) Cancelled Lymph # (Auto) Cancelled [place] # (Auto) Cancelled Eos # (Auto) Cancelled Baso # (Auto) Cancelled Abs Immat Gran (auto) Cancelled Absolute Neuts (auto) Cancelled Absolute Nucleated RBC 0.000 Nucleated RBC % (auto) 0.0 Neutrophils % (Manual) 71 Band Neutrophils % 4 Lymphocytes % (Manual) 18 L Monocytes % (Manual) 6 Metamyelocytes % 1 Abs Neuts (Manual) 5.2 Lymphocytes # (Manual) 1.2 Monocytes # (Manual) 0.4 Metamyelocytes # 0.1 Platelet Estimate NORMAL Plt Morphology Comment NORMAL RBC Morphology NOTED Hypochromasia 1+ (5-14) Anion Gap 10 L Estim Creat Clear Calc 117.7 Estimated GFR > 60 Fasting Glucose 125 H Calcium 8.4 Total Bilirubin 0.5 AST 12 ALT 16 Alkaline Phosphatase 46 Total Protein 6.2 L Albumin 3.3 L Microbiology Microbiology Results: Microbiology 05/03/21 13:08 Blood Culture - Preliminary Blood - Venous No growth after 48 hours. 05/03/21 12:43 Blood Culture - Preliminary Blood - Venous No growth after 48 hours. Assessment and Plan (1) Acute respiratory failure with hypoxia: Status: Acute (2) COVID-19: Status: Acute Assessment and Plan: 30-year-old unvaccinated female presents with worsening COVID-19 symptoms over the last 48-72 hours. Onset of symptoms was 10 days remote. X-ray consistent with worsening atypical pneumonia. Worsening O2 requirement. stable overnight 1. Acute hypoxic respiratory failure secondary to Covid-19 pneumonia improving continue IV Decadron continue Pepcid...albuterol nebs prn. Titrate O2 to maintain sats>/= 92% morphine added for acute distress and anxiety cough medication 2. 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 trend daily to ensure stability Full Code Lovenox Quality Stroke Does the patient have a stroke diagnosis?: No VTE Prior VTE?: No VTE Risk Level:: Medical - moderate - high VTE Device Contraindication: Treatment Not Indicated VTE Drug Contraindication: N/A - Med Ordered
[2021-05-06] MEDS: guaiFENesin LA 600 MG TAB.ER.12H PO ×2 (13:34→22:02)
[2021-05-06] MEDS: Enoxaparin Sodium 40 MG/0.4 ML SYRINGE SUBCUT (17:47)
[2021-05-07] VITALS (11 sets, daily range): BP systolic 105–141; BP diastolic 57–81; PULSE 55–80; RESP 18–28; TEMP 36.1–37; O2SAT 95–100
[2021-05-07] MEDS: Benzonatate 100 MG CAPSULE 200 MG PO ×3 (09:33→21:50)
[2021-05-07] MEDS: Doxycycline Hyclate 100 MG in 0.9 % Sodium Chloride 250 ML 166.6 MG IV (09:34)
[2021-05-07] MEDS: methylPREDNISolone Sod Succ 125 MG/2 ML VIAL 60 MG IVPUSH (09:34)
[2021-05-07] MEDS: Famotidine/PF 20 MG/2 ML VIAL IVPUSH ×2 (09:34→21:50)
[2021-05-07] MEDS: Morphine Sulfate 2 MG/ML CARTRIDGE IVPUSH ×2 (09:34→22:10)
[2021-05-07] MEDS: guaiFENesin LA 600 MG TAB.ER.12H PO ×2 (09:34→21:50)
[2021-05-07] MEDS: 0.9 % Sodium Chloride Flush 3 ML SYRINGE IVFLUSH ×3 (09:35→21:51)
--- NOTE | 2021-05-07 11:16 | P.PNIM_ITS ---
Subjective Subjective Date of Service: 05/07/21 Interval History: The patient was seen and evaluated this morning Laying in bed, complaining of headache this morning feels short of breath and dyspneic with exertion Failed home O2 evaluation, developed dyspnea in significant distress No reported other overnight events. Systemic review: No fever, chills but generalized weakness No chest pain, palpitation dyspnea on exertion, episodes of cough No abdominal pain, nausea or vomiting No urinary symptoms No any rash or wounds Physical Exam Vital Signs: Vital Signs: Last Vital Signs Temp 98.6 F 05/07/21 11:13 Pulse 60 05/07/21 11:13 Resp 18 05/07/21 11:13 BP 113/66 05/07/21 11:13 Pulse Ox 95 05/07/21 11:13 Oxygen Flow Rate 2 05/03/21 12:08 BMI result Body Mass Index 25.0 Const: Other: Constitutional : Alert, oriented Neck : Normal inspection, Supple Cardiovascular : RRR, S1 S2, no lower extremity edema Respiratory : decreased bilateral air entry, chest wall moving bilaterally, in mild respiratory distress Gastrointestinal: soft, lax, Normal bowel sounds, Non tender Skin : Warm, Dry Neurological : Alert & oriented x3, No focal deficit Objective Data Active Medications Acetaminophen (Acetaminophen 325 Mg Tablet) 650 mg PO Q6H PRN PRN Reason: pain or fever Last Admin: 05/05/21 15:29 Dose: 650 mg Documented by: AMEYA Albuterol Sulfate (Albuterol Sulfate (0.083%) 2.5 Mg/3 Ml Vial.Neb) 2.5 mg INHALE RQ4H WHILE AWAKE [facility] Last Admin: 05/07/21 08:14 Dose: Not Given Documented by: KIMMY Non-Admin Reason: See Note Benzonatate (Benzonatate 100 Mg Capsule) 200 mg PO TID PRN PRN Reason: cough Last Admin: 05/06/21 09:52 Dose: 200 mg Documented by: MARY Benzonatate (Benzonatate 100 Mg Capsule) 200 mg PO TID [facility] Last Admin: 05/07/21 09:33 Dose: 200 mg Documented by: CHAD Enoxaparin Sodium (Enoxaparin Sodium 40 Mg/0.4 Ml Syringe) 40 mg SUBCUT Q24H [facility] Last Admin: 05/06/21 17:47 Dose: 40 mg Documented by: MARY Famotidine (Famotidine/Pf 20 Mg/2 Ml Vial) 20 mg IVPUSH BID@1000,2200 [facility] Last Admin: 05/07/21 09:34 Dose: 20 mg Documented by: CHAD Guaifenesin (Guaifenesin La 600 Mg Tab.Er.12h) 600 mg PO BID [facility] Last Admin: 05/07/21 09:34 Dose: 600 mg Documented by: CHAD Doxycycline Hyclate 100 mg/ (Sodium Chloride) 250 mls @ 166.67 mls/hr IV BID@1000,2200 [facility] Last Infusion: 05/07/21 11:07 Dose: 0 mls/hr Documented by: CHAD Methylprednisolone Sodium Succinate (Methylprednisolone Sod Succ 125 Mg/2 Ml Vial) 60 mg IVPUSH DAILY [facility] Last Admin: 05/07/21 09:34 Dose: 60 mg Documented by: CHAD Morphine Sulfate (Morphine Sulfate 2 Mg/Ml Cartridge) 2 mg IVPUSH Q4H PRN; Protocol PRN Reason: Shortness of Breath Last Admin: 05/07/21 09:34 Dose: 2 mg Documented by: CHAD Pharmacy Consult (Consult Rx Perform Med Rec) 1 each MISCELLANE ONCE PRN PRN Reason: Consult order Sodium Chloride (0.9 % Sodium Chloride Flush 3 Ml Syringe) 3 ml IVFLUSH QSHIFT [facility] Last Admin: 05/07/21 09:35 Dose: 3 ml Documented by: CHAD Labs CBC & Chem 7: 05/06/21 06:20 05/06/21 06:20 Assessment and Plan (1) Acute respiratory failure with hypoxia: Status: Acute (2) COVID-19: Status: Acute Assessment and Plan: 30-year-old unvaccinated female presents with worsening COVID-19 symptoms over the last 48-72 hours. Onset of symptoms was 10 days remote. X-ray consistent with worsening atypical pneumonia. Worsening O2 requirement. stable overnight 1. Acute hypoxic respiratory failure secondary to Covid-19 pneumonia improving slowly continue IV Decadron continue Pepcid...albuterol nebs prn. Titrate O2 to maintain sats>/= 92% morphine added for acute distress and anxiety cough medication qualified for home oxygen, will keep her overnight hoping she would feel better by tomorrow To repeat O2 sat with ambulation tomorrow 2. 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 trend daily to ensure stability Full Code Lovenox Quality Stroke Does the patient have a stroke diagnosis?: No VTE Prior VTE?: No VTE Risk Level:: Medical - moderate - high VTE Device Contraindication: Treatment Not Indicated VTE Drug Contraindication: N/A - Med Ordered
[2021-05-07] MEDS: Butalb/Acetamin/Caff 50/325/40 TABLET 1 TAB PO (13:03)
[2021-05-07] MEDS: Enoxaparin Sodium 40 MG/0.4 ML SYRINGE SUBCUT (15:03)
[2021-05-07] MEDS: Albuterol Sulfate (0.083%) 2.5 MG/3 ML VIAL.NEB INHALE ×2 (15:43→21:51)
[2021-05-07] MEDS: Doxycycline Hyclate 100 MG in 0.9 % Sodium Chloride 250 ML 166.67 MG IV (21:50)
[2021-05-07] MEDS: Acetaminophen 325 MG TABLET 650 MG PO (21:50)
[2021-05-08 02:47] VITALS: BP 114/59; PULSE 58; RESP 20; TEMP 36.6; O2SAT 96
[2021-05-08 07:28] LABS: Anion Gap 10 (12-20); Blood Urea Nitrogen 12 mg/dL (9-16); Calcium 8.8 mg/dL (8.4-10.2); Carbon Dioxide 27 mmol/L (22-29); Chloride 109 mmol/L (96-108); Creatinine Clr Calc Pharmacy 107.6; Estimated Glomerular Filt Rate > 60; Glucose Random 118 mg/dL (60-115); Potassium 4.1 mmol/L (3.3-5.1); Sodium 142 mmol/L (135-145)
[2021-05-08 07:32] LABS: C Reactive Protein 1.27 mg/dL (< or = 0.50)
[2021-05-08 08:00] VITALS: BP 116/80; PULSE 67; RESP 14; TEMP 36.4; O2SAT 96
[2021-05-08] MEDS: methylPREDNISolone Sod Succ 125 MG/2 ML VIAL 60 MG IVPUSH (09:17)
[2021-05-08] MEDS: Famotidine/PF 20 MG/2 ML VIAL IVPUSH (09:17)
[2021-05-08] MEDS: guaiFENesin LA 600 MG TAB.ER.12H PO (09:18)
[2021-05-08] MEDS: 0.9 % Sodium Chloride Flush 3 ML SYRINGE IVFLUSH (09:18)
[2021-05-08] MEDS: Benzonatate 100 MG CAPSULE 200 MG PO (09:18)
[2021-05-08] MEDS: Doxycycline Hyclate 100 MG in 0.9 % Sodium Chloride 250 ML 166.67 MG IV (09:18)
--- NOTE | 2021-05-08 10:35 | P.DS_ITS ---
DS: Providers Provider Date of Service: 05/08/21 Date of admission: 05/03/21 16:04 Primary care physician: Janet Alanis MD Consults: 05/03/21 16:26 Consult to Infectious Diseases Routine Consulting Provider: Roseanna Gann Reason for consultation: Covid - 19 pneumonia Has provider been notified: Yes DS: Diagnosis Discharge Diagnosis (1) Acute respiratory failure with hypoxia: Status: Resolved (2) COVID-19: Status: Resolved DS: Summary Hospital Course Hospital Course: Admission note HPI ?30-year-old unvaccinated female presents to the ER complaints of worsening shortness of breath.? She was seen 48 hours previously and diagnosed with COVID- 19.? X-ray at that time showed mild bibasilar infiltrates but patient was not hypoxic.? She opted to be DC to home.? Over the next 48 hours, she became worse and presented back to ER.? Chest x-ray markedly worse with diffuse patchy bilateral infiltrates.? Sats 89-90% on 4 L. No history of asthma or tobacco abuse. She will be admitted for IV steroids and supplemental O2 Hospital Course Patient was admitted for treatment of COVID-19 infection with hypoxia. Placed on IV steroids, doxycycline and started on oxygen supplement with good response over the course of hospital stay as she was weaned off the oxygen. She was evaluated by infectious disease specialist who recommended no need for antiviral medication giving the length of the disease. Plan to discharge home to finish 5 more days of dexamethasone and to use cough medication as needed. Time Spent with Patient Time attestation: Total time spent providing and/or coordinating discharge services: Discharge coordination time: Greater than 30 minutes Quality: Stroke Does the patient have a stroke diagnosis?: No Physical Exam Vital Signs: Vital Signs: Last Vital Signs Temp 97.5 F 05/08/21 08:00 Pulse 67 05/08/21 08:00 Resp 14 05/08/21 08:00 BP 116/80 05/08/21 08:00 Pulse Ox 96 05/08/21 08:00 Oxygen Flow Rate 2 05/03/21 12:08 BMI result Body Mass Index 25.0 Const: Other: Constitutional : Alert, oriented Neck : Normal inspection, Supple Cardiovascular : RRR, S1 S2, no lower extremity edema Respiratory : decreased bilateral air entry, chest wall moving bilaterally, not in distress Gastrointestinal: soft, lax, Normal bowel sounds, Non tender Skin : Warm, Dry Neurological : Alert & oriented x3, No focal deficit DS: Data Data Completed and Pending Labs on day of discharge: Laboratory Results - last 24 hr 05/08/21 05/08/21 06:53 06:53 Sodium 142 Potassium 4.1 Chloride 109 H Carbon Dioxide 27 Anion Gap 10 L BUN 12 Creatinine 0.70 Estim Creat Clear Calc 107.6 Estimated GFR > 60 Random Glucose 118 H Calcium 8.8 C-Reactive Protein 1.27 H Preliminary micro results at discharge 05/03/21 13:08 Blood Culture - Preliminary Blood - Venous No growth after 48 hours. 05/03/21 12:43 Blood Culture - Preliminary Blood - Venous No growth after 48 hours. Discharge Plan Discharge Patient Disposition: Home, Self-Care Discharge Diagnosis: COVID-19 infection Referrals: Janet Rome MD [Primary Care Provider] - 1 Week Discharge Medications: New benzonatate 100 mg Capsule 200 mg PO TID 7 Days Qty: 42 RF: 0 dexamethasone 6 mg tablet 6 mg PO DAILY Qty: 5 RF: 0 Continued albuterol sulfate 90 mcg/actuation HFA aerosol inhaler 2 puff inhalation Q4-6H PRN (Reason: shortness of breath or wheezing) Qty: 6.7 RF: 0 benzonatate 200 mg capsule 200 mg PO TID PRN (Reason: cough) Qty: 20 RF: 0 acetaminophen [Tylenol Extra Strength] 500 mg tablet 500 mg PO Q6H PRN (Reason: pain or fever) Qty: 20 RF: 0 Discontinued doxycycline hyclate 100 mg tablet 100 mg PO BID 7 Days Qty: 14 RF: 0 Discharge Orders: Discharge Order (Routine); Ordered 05/08/21 Ordered By: Almaz Thomas Diet: advance to usual diet Activity on Discharge: As tolerated Stand Alone Forms: Patient Portal Discharge page Care Plan Goals: Read below Health Concerns: Read below Plan of Treatment: Read below Assessment: You were admitted to the hospital for evaluation of difficulty breathing and shortness of breath. Found to have COVID-19 infection. Treated with IV steroids, antibiotics and oxygen supplement with good response over the course of hospital stay. You were weaned off the oxygen. Continue dexamethasone for 5 more days Use cough medication as needed Discharge Date/Time: 05/08/21 13:24
[2021-05-08 11:41] VITALS: PULSE 84; O2SAT 95
== END 2021-05-08 13:24 | disposition home or self-care (01) | DRG 137 ==
LOC: HO.ED 14:55 → HO.EDOVER 16:28 → HO.IMC 05-04 01:58
PROVIDERS: Emergency Medicine; Physician Assistant Medical; Admitting Provider Hospitalist; Emergency Provider Emergency Medicine; PCP Internal Medicine; Visit Provider Student in an Organized Health Care Education/Training Program
DX: U07.1 COVID-19 (principal); J96.01 Acute respiratory failure with hypoxia; J12.82 Pneumonia due to coronavirus disease 2019; D68.4 Acquired coagulation factor deficiency; Z87.891 Personal history of nicotine dependence; Z79.899 Other long term (current) drug therapy
CPT/HCPCS: 36415; 71045; 80048; 80053; 82550; 82728; 83605; 83615; 83735; 83880; 84145; 84484; 84702; 85007; 85025; 85027; 85379; 85610; 85652; 86140; 87040; 87635; 93005; 94640; 94644; 96365; 96366; 96375; 99285; 99291; J0696; J1650; J2270; J2930; J3475

== ENCOUNTER 2021-07-15 09:56 | Outpatient (REF) | payer OTHER, SELFPAY ==
[2021-07-15 10:20] LABS: MANUAL DIFF FLAG NO
[2021-07-15 10:52] LABS: Basophils Percent Auto 0.4 % (0-2); Eosinophils Absolute Auto 0.1 X10*3/uL (0.0-0.4); Eosinophils Percent Auto 1.2 % (0-4); Hematocrit 40.7 % (37.0-47.0); Hemoglobin 13.1 g/dl (12.0-16.0); Imm Gran Abs Auto 0.03 X10*3/uL (0.00-0.03); Imm Gran Pct Auto 0.4 % (0.0-0.4); Lymphocytes Absolute Auto 2.4 X10*3/uL (1.2-4.9); Lymphocytes Percent Auto 31.2 % (20-40); Mean Corpuscular HGB Conc 32.2 g/dl (31.0-35.0); Mean Corpuscular Hemoglobin 28.5 pg (27.0-33.0); Mean Corpuscular Volume 88.7 fL (80.0-98.0); Mean Platelet Volume 11.4 fL (9.4-12.3); Monocytes Absolute Auto 0.4 X10*3/uL (0.1-1.2); Monocytes Percent Auto 5.4 % (2-11); Neutrophils Absolute Auto 4.7 x10*3/uL (2.0-8.3); Neutrophils Percent Auto 61.4 % (45-73); Platelet Count 322 X10*3/uL (160-400); Red Blood Count 4.59 X10*6/uL (4.20-5.50); Red Cell Distribution Width 14.2 % (11.0-16.0); White Blood Count 7.7 X10*3/uL (4.8-10.8)
[2021-07-15 11:37] LABS: Alanine Aminotransferase 13 U/L (0-31); Alkaline Phosphatase 77 U/L (39-117); Anion Gap 10 (12-20); Aspartate Amino Transferase 16 U/L (5-31); Bilirubin Total 0.4 mg/dL (0.0-1.0); Blood Urea Nitrogen 8 mg/dL (9-16); Calcium 9.4 mg/dL (8.4-10.2); Carbon Dioxide 27 mmol/L (22-29); Chloride 108 mmol/L (96-108); Cholesterol 161 mg/dL; Estimated Glomerular Filt Rate > 60; Glucose Fasting 94 mg/dL (60-99); HDL Cholesterol 35 mg/dL; Iron 52 mcg/dL (30-160); LDL Cholesterol Calculated 99 mg/dl; Percent Iron Saturation 13 % (15-50); Sodium 140 mmol/L (135-145); Total Iron Binding Capacity 396 mcg/dL (228-428); Total Protein 6.7 g/dL (6.5-8.0); Triglycerides 138 mg/dL; Unsaturated Iron Binding 344 ug/dL
== END 2021-07-15 09:57 | disposition home or self-care (01) ==
LOC: HO.LAB 09:56
PROVIDERS: PCP Internal Medicine; Visit Provider Internal Medicine
DX: D64.9 Anemia, unspecified (principal); E78.5 Hyperlipidemia, unspecified; G89.29 Other chronic pain; M54.9 Dorsalgia, unspecified
CPT/HCPCS: 36415; 80053; 80061; 83540; 85025

== ENCOUNTER 2022-02-09 17:00 | Outpatient (RCR) | payer OTHER, SELFPAY ==
--- NOTE | 2021-12-26 18:18 | MHC.PT.EP ---
[facility] [place] Office [place] Office [place] Office [address] Andre Jones [address] [phone] F: [phone] F: [phone] F: [phone] F: [phone] Physical Therapy Plan of Care Date of Evaluation: Date of Surgery: N/A Diagnosis: dorsalgia Assessment: pt is a 31 yo F presenting to PT with referral for dorsalgia, chronic pain, hypertrophy of breast, chest pain . pt signs and symptoms include cervical pain, mid thoracic pain, and low back pain. pt describes the pain as stabbing and is increased with rotation of cervical and thoracic spine, as well as with lifting objects at work and at home. pt exhibited decreased back strength as noted in MMT noted above. pt is a good candidate for PT because she is motivated to explore non-surgical management at this time. pt will benefit from skilled therapy to increase strength, postural control, and flexibility to target muscular imbalances within chest, shoulder, and upper back with tailored home exercise program, manual techniques, education regarding posture and body mechanics for work-related tasks and ADLs, and modalities as needed. Frequency and Duration: The patient will be seen 2x/wk for 4 wks Short Term Goals: pt will be I w/ HEP to promote self-management of condition. pt will demo proper sitting posture w/ lumbar roll to promote neutral spine w/ seated ADLs. pt will improve B cervical rotation by 10 degrees to promote ease w/ head turns while driving. Fiscal Clerk Goals: pt will improve B rhomboid and middle trap strength by 1 MMT grade to promote neutral spine w/ lifting at work. pt will report a statistically significant improvement in self-reported outcome measure, Syed, to promote return to PLOF. Treatment Plan: Modalities to reduce pain, spasms and effusion. Manual therapy to restore motion and function. Therapeutic exercise to improve strength and flexibility. Neuromuscular re-education for posture and balance. Therapeutic activities to return to functional activities of daily living. Electronically signed by: Andreina Quintana PT, DPT Please sign and return to therapist. Thank you for your referral.
== END 2022-03-02 17:23 | disposition home or self-care (01) ==
LOC: HO.PT 17:00
PROVIDERS: PCP Nurse Practitioner Acute Care; Visit Provider Nurse Practitioner Acute Care
DX: M54.9 Dorsalgia, unspecified (principal); G89.29 Other chronic pain; N62 Hypertrophy of breast; R07.9 Chest pain, unspecified
CPT/HCPCS: 97110; 97140; 97162

== ENCOUNTER 2022-07-06 20:27 | Emergency (ER) | payer OTHER, SELFPAY ==
[2022-07-06 20:58] VITALS: BP 109/63; PULSE 111; RESP 18; TEMP 36.8; O2SAT 98; BMI 30.9
[2022-07-06 21:24] LABS: MANUAL DIFF FLAG NO
[2022-07-06 21:28] LABS: Basophils Percent Auto 0.2 % (0-2); Eosinophils Percent Auto 0.3 % (0-4); Hematocrit 40.9 % (37.0-47.0); Hemoglobin 13.7 g/dl (12.0-16.0); Imm Gran Abs Auto 0.07 X10*3/uL (0.00-0.03); Imm Gran Pct Auto 0.5 % (0.0-0.4); Lymphocytes Absolute Auto 2.3 X10*3/uL (1.2-4.9); Lymphocytes Percent Auto 14.6 % (20-40); Mean Corpuscular HGB Conc 33.5 g/dl (31.0-35.0); Mean Corpuscular Hemoglobin 28.7 pg (27.0-33.0); Mean Corpuscular Volume 85.7 fL (80.0-98.0); Mean Platelet Volume 9.9 fL (9.4-12.3); Monocytes Absolute Auto 1.5 X10*3/uL (0.1-1.2); Monocytes Percent Auto 9.5 % (2-11); Neutrophils Absolute Auto 11.6 x10*3/uL (2.0-8.3); Neutrophils Percent Auto 74.9 % (45-73); Platelet Count 255 X10*3/uL (160-400); Red Blood Count 4.77 X10*6/uL (4.20-5.50); Red Cell Distribution Width 12.8 % (11.0-16.0); White Blood Count 15.5 X10*3/uL (4.8-10.8)
[2022-07-06] MEDS: Ondansetron ODT 4 MG TAB.RAPDIS TRANSLINGU (21:30)
[2022-07-06 21:42] LABS: Alanine Aminotransferase 16 U/L (0-31); Albumin Level 4.3 g/dL (3.5-5.0); Alkaline Phosphatase 97 U/L (39-117); Anion Gap 15 (12-20); Aspartate Amino Transferase 17 U/L (5-31); Bilirubin Direct 0.4 mg/dL (0.0-0.5); Bilirubin Total 1.4 mg/dL (0.0-1.0); Blood Urea Nitrogen 9 mg/dL (9-16); Calcium 9.1 mg/dL (8.4-10.2); Carbon Dioxide 23 mmol/L (22-29); Chloride 103 mmol/L (96-108); Creatinine Clr Calc Pharmacy 87.6; Estimated Glomerular Filt Rate > 60; Glucose Random 109 mg/dL (60-115); Lipase 12 U/L (8-78); Potassium 3.9 mmol/L (3.3-5.1); Sodium 137 mmol/L (135-145); Total Protein 7.6 g/dL (6.5-8.0)
[2022-07-07 01:13] VITALS: BP 110/69; PULSE 74; RESP 16; TEMP 36.8; O2SAT 97
--- NOTE | 2022-07-07 01:47 | ED_ITS ---
HPI - Fever General Chief Complaint: Fever Stated Complaint: vomiting,fever sent from urgent care Time Seen by Provider: 07/07/22 01:31 Source: patient Mode of arrival: ambulatory Limitations: no limitations History of Present Illness HPI Narrative: 32-year-old female who presents emergency department for evaluation of nausea, vomiting, diarrhea, headache, fatigue x3 days. Patient states that she has had nausea and vomiting and not able to hold down any food or fluid for the past 3 days. She also states she has had 2-3 episodes of loose diarrheal stool per day. Patient states she is feeling very fatigued and weak. She also is complaining of a right-sided headache which she states is a constant, shooting pain which is 8/10 at its worst. The patient states that she went to an urgent care clinic and had a negative COVID influenza test. She states that the urgent care was concerned that she had a low blood pressure, elevated heart rate and a temperature of a 102 degrees therefore she was referred to the emergency department for evaluation. Related Data Previous Rx's Medication Instructions Recorded sertraline 25 mg tablet 25 mg PO DAILY 90 days #90 tabs 07/13/21 buspirone 7.5 mg tablet 7.5 mg PO BID 90 days #180 tabs 05/24/22 methocarbamol 750 mg tablet 750 mg PO Q8H 7 days #21 tabs 05/24/22 metoclopramide HCl 10 mg tablet 10 mg PO Q6H PRN nausea and 07/07/22 (Reglan) vomiting #14 tabs Allergies Allergy/AdvReac Type Severity Reaction Status Date / Time sumatriptan [Sumatriptan] Allergy Unknown FACIAL Verified 05/24/22 11:44 SWELLING THROAT TIGHTNESS Review of Systems Review of Systems: Yes all other systems are reviewed and are negative [facility] Past Medical History [facility] Narrative: Social history: The patient denies tobacco use. She occasionally drinks alcohol. She denies drug use. Medical History SHMUEL (generalized anxiety disorder) Mild depression Obese Pre-op evaluation Surgical History History of appendectomy History of eye surgery History of gastric surgery Family History Family History Father Diabetes Hypertension Chronic mental illness Depression Mother No problems noted. Paternal Grandmother Pneumonia Paternal Grandfather Throat cancer Suicide Family/Other FH: mental illness Social History Social History Housing: Apartment Alcohol intake: current Alcohol intake frequency: a few times a month Alcohol type: wine Patient Tobacco Use Status: Former Tobacco user Tobacco use type: Cigarette e-Cigarette/Vaping Use: Never Used Second Hand Smoke Exposure: No Advance Directives: No service: No Current occupational status: employed Current occupational exposures/hazards: No Cognitive needs: No Hearing needs: No Vision needs: Yes (glasses) Physical Exam Vital Signs: Vital Signs: Last Vital Signs Temp 98.2 F 07/07/22 01:13 Pulse 74 07/07/22 01:13 Resp 16 07/07/22 01:13 BP 110/69 07/07/22 01:13 Pulse Ox 97 07/07/22 01:13 O2 Del Method 07/07/22 01:13 BMI result Body Mass Index 30.9 Const: General: cooperative and no acute distress Orientation/conscious ness: oriented to person and oriented to place Limitations: no limitations HEENT: Other: no tenderness palpation of the temporal areas Head: Yes normal to inspection, Yes normocephalic and Yes atraumatic Ears: external ears normal General nose exam: Normal external nose present Face and sinus: Yes normal facial exam Mouth: Normal oral and palatal mucosa present Throat: Yes posterior oropharynx normal Eyes: General: appearance normal, both eyes and all related structures Pupils: Equal, round and reactive pupils present Neck: Other: Neck was supple, full range of motion passively without any meningeal signs Neck: Yes normal visual inspection, Yes no lymphadenopathy, Yes trachea midline and Yes supple Chest: Chest palpation & inspection: normal inspection of the chest and normal palpation of entire chest wall Resp: Effort & Inspection: normal respiratory effort and able to speak in complete sentences Auscultation: clear to auscultation bilaterally Cardio: Rate: regular rate Rhythm: regular rhythm Heart sounds: S1 normal heart sound present, S2 normal heart sound present and no murmurs GI: Inspection: Yes normal to inspection Palpation (GI): Soft to palpation, nontender and no guarding Auscultation: normal bowel sounds : General: Yes no CVA tenderness Back/Spine/Pelvis: Back: no CVA tenderness Skin: General skin exam: no rashes or lesions noted Neuro: General: oriented to person and oriented to place Cranial nerves: Y es CN's II-XII intact bilaterally and Yes Equal, round and reactive pupils present Cognition (Neuro): normal cognition Motor exam (neuro): 5/5 motor strength present throughout Extrem: General: Yes normal to inspection Psych: Appearance: grossly normal Speech and movement: Normal speech and movement present Affect: normal affect Attitude: cooperative Medications Administered Discontinued Medications Generic Name Dose Route Start Last Admin Trade Name Tomq PRN Reason Stop Dose Admin Ondansetron HCl 4 mg 07/06/22 21:04 07/06/22 21:30 Ondansetron Odt 4 Mg Tab.Rapdis TRANSLINGU 07/06/22 21:05 4 mg ONCE ONE Administration Medical Decision Making Medical Decision Making [facility] Narrative: 32-year-old female who presents emergency department for evaluation of 3 days viral-like illness with symptoms including headache, nausea, vomiting, fatigue, and diarrhea. Vital signs did reveal an elevated pulse of 111 otherwise were unremarkable. Patient's neurologic exam was nonfocal. patient's presentation is consistent with a viral like syndrome with dehydration and migraine-like head ache. I ordered Laboratory evaluation including CBC, CMP and lipase, and lipase. patient was ordered to get lactated Ringer's x2 L patient's headache nausea and vomiting will be treated with Toradol 15 mg IV, Reglan 10 mg IV and Benadryl 50 mg IV. 0155: My independent interpretation of the patient's laboratory evaluation is as follows: WBC elevated 15,500 with 79 neutrophils and 14 lymphocytes. CMP was normal except for an elevated total bilirubin of 1.5 with a normal direct bilirubin of 0.4. Lipase was normal at 12. I will discharge her treat her with the following regimen for her headache, nausea and vomiting: Reglan 10 mg orally, Benadryl 50 mg orally and Excedrin migraine 1 tablet per orally every 6 hours as needed. She was given printed and verbal instructions. She was also given a work note. Differential Diagnosis Differential diagnosis includes but is not limited to viral syndrome, migraine syndrome, meningitis, dehydration, volume depletion Lab Data [facility] Lab Attestation statement: I reviewed the patient's lab results. Please see [facility] for my discussion 07/06/22 21:18 07/06/22 21:18 Labs: Lab Results 07/06/22 07/06/22 Range/Units 21:18 21:18 WBC 15.5 H (4.8-10.8) X10*3/uL RBC 4.77 (4.20-5.50) X10*6/uL Hgb 13.7 (12.0-16.0) g/dl Hct 40.9 (37.0-47.0) % MCV 85.7 (80.0-98.0) fL MCH 28.7 (27.0-33.0) pg MCHC 33.5 (31.0-35.0) g/dl RDW 12.8 (11.0-16.0) % Plt Count 255 (160-400) X10*3/uL MPV 9.9 (9.4-12.3) fL Immature Gran % (Auto) 0.5 H (0.0-0.4) % Neut % (Auto) 74.9 H (45-73) % Lymph % (Auto) 14.6 L (20-40) % Cass % (Auto) 9.5 (2-11) % Eos % (Auto) 0.3 (0-4) % Baso % (Auto) 0.2 (0-2) % Lymph # (Auto) 2.3 (1.2-4.9) X10*3/uL Cass # (Auto) 1.5 H (0.1-1.2) X10*3/uL Eos # (Auto) 0.0 (0.0-0.4) X10*3/uL Baso # (Auto) 0.0 (0.0-0.2) X10*3/uL Abs Immat Gran (auto) 0.07 H (0.00-0.03) X10*3/uL Absolute Neuts (auto) 11.6 H (2.0-8.3) x10*3/uL Absolute Nucleated RBC 0.000 (0.0-0.012) X10*3/uL Nucleated RBC % (auto) 0.0 (0.0-0.2) /100WBC Sodium 137 (135-145) mmol/L Potassium 3.9 D (3.3-5.1) mmol/L Chloride 103 (96-108) mmol/L Carbon Dioxide 23 (22-29) mmol/L Anion Gap 15 (12-20) BUN 9 (9-16) mg/dL Creatinine 0.90 (0.5-1.4) mg/dL Estim Creat Clear Calc 87.6 Estimated GFR > 60 Random Glucose 109 (60-115) mg/dL Calcium 9.1 (8.4-10.2) mg/dL Total Bilirubin 1.4 H (0.0-1.0) mg/dL Direct Bilirubin 0.4 (0.0-0.5) mg/dL AST 17 (5-31) U/L ALT 16 (0-31) U/L Alkaline Phosphatase 97 (39-117) U/L Total Protein 7.6 (6.5-8.0) g/dL Albumin 4.3 (3.5-5.0) g/dL Lipase 12 (8-78) U/L Discharge Plan Discharge Clinical Impression: Acute viral syndrome, Headache, migraine, Acute dehydration Patient Disposition: Home, Self-Care Instructions: Migraine Headache (ED), Viral Syndrome (ED) Additional Instructions: Your laboratory evaluation did reveal an elevated white blood cell count otherwise was unremarkable. Your symptoms are consistent with a viral infection which is giving you a migraine-like headache. Also, your symptoms are consistent with being very dehydrated. I want you to take the following 3 medications together every 6 hours as needed for headache, nausea or vomiting. Reglan (metoclopramide) in 10 mg, 1 pill Benadryl 25 mg, 2 pills Excedrin migraine, 2 pills. After you take these medications, lie down in a dark quiet room and try to fall asleep. These medications will make you sleepy, do not drive or work after taking these medications. Follow-up with your doctor in 2 days. Please return to the emergency department if your symptoms get worse or if you develop any symptoms that are concerning to you. please see the work note Prescriptions: New metoclopramide HCl [Reglan] 10 mg tablet 10 mg PO Q6H PRN (Reason: nausea and vomiting) Qty: 14 0RF No Action sertraline 25 mg tablet 25 mg PO DAILY 90 Days Qty: 90 1RF buspirone 7.5 mg tablet 7.5 mg PO BID 90 Days Qty: 180 0RF methocarbamol 750 mg tablet 750 mg PO Q8H 7 Days Qty: 21 0RF Stand Alone Forms: Work/School Release
[2022-07-07 02:00] VITALS: BP 120/63; PULSE 87; RESP 16; TEMP 36.5; O2SAT 98
[2022-07-07] MEDS: Ibuprofen 400 MG TABLET PO (03:10)
[2022-07-07] MEDS: diphenhydrAMINE HCL 25 MG CAPSULE 50 MG PO (03:11)
[2022-07-07] MEDS: Metoclopramide HCl 10 MG TABLET PO (03:11)
--- NOTE | 2022-07-07 03:21 | PC.NURSE ---
pt a&o, no sob or chest pain, no n/v, medicated for headache 12/21. Reviewed discharge instructions with pt, pt verbalized understanding.
== END 2022-07-07 03:22 | disposition home or self-care (01) ==
PROVIDERS: Emergency Provider Emergency Medicine Emergency Medical Services; PCP Internal Medicine
DX: B34.9 Viral infection, unspecified (principal); G43.909 Migraine, unspecified, not intractable, without status migrainosus; R11.2 Nausea with vomiting, unspecified; E86.0 Dehydration
CPT/HCPCS: 36415; 80053; 82248; 83690; 85025; 99283; 99284

== ENCOUNTER 2022-10-12 14:29 | Outpatient (REF) | payer OTHER, SELFPAY ==
[2022-10-12 15:06] LABS: Appearance Urine Clear; Color Urine Yellow; Glucose Urine UA Negative (Negative); Leukocyte Esterase Urine Negative (Negative); Nitrite Urine Negative (Negative); UMIC TRIGGER UACC YES; Urine Blood Trace (Negative); Urine Ketones Negative (Negative); Urine Protein Negative (Neg-Trace)
[2022-10-12 15:10] LABS: Bacteria Urine None Seen (None Seen); Hyaline Casts Urine 0-2 /LPF (0-2); RBC Urine 0-2 /HPF (0-2); Squamous Epithelial Cell Urine 0-2 /HPF (0-2); WBC Urine 0-5 /HPF (0-5)
== END 2022-10-12 14:30 | disposition home or self-care (01) ==
LOC: HO.LAB 14:29
PROVIDERS: PCP Internal Medicine; Visit Provider Internal Medicine
DX: Z79.899 Other long term (current) drug therapy (principal)
CPT/HCPCS: 81001; 81003

== ENCOUNTER 2023-04-19 03:25 | Emergency (ER) | payer OTHER, SELFPAY ==
[2023-04-19 03:38] VITALS: BP 118/79; PULSE 87; RESP 20; TEMP 36.1; O2SAT 98; BMI 31.1
--- NOTE | 2023-04-19 04:06 | ED_ITS ---
HPI - Eye Problem General Chief complaint: Eye Problems Stated complaint: Eye issue Time Seen by Provider: 04/19/23 03:43 Source: patient Mode of arrival: ambulatory Limitations: no limitations History of Present Illness HPI Narrative: Patient comes to the emergency room complaining of right eye pain that started approximately 12 hours ago. Patient states that she inserted the contact lenses around 7 am yesterday. throughout the day, the patient's eye started becoming teary. Pt thought it was due to allergies. Patient took her contact lenses off at 4pm, and shortly after the eye started becoming more painful. Patient denies sleeping with her contact lenses or any eye trauma Related Data Home Medications Medication Instructions Recorded Confirmed sertraline 100 mg tablet 100 mg PO DAILY 10/16/22 10/16/22 Previous Rx's Medication Instructions Recorded buspirone 10 mg tablet 10 mg PO BID 90 days #180 tabs 12/29/22 ketorolac 0.4 % eye drops 1 drp ophthalmic (eye) QID PRN 04/19/23 pain 4 days #5 mL ketorolac 10 mg tablet 10 mg PO TID PRN pain #10 tabs 04/19/23 moxifloxacin 0.5 % eye drops 1 drp ophthalmic (eye) TID 7 days 04/19/23 #3 mL Allergies Allergy/AdvReac Type Severity Reaction Status Date / Time sumatriptan [Sumatriptan] Allergy Unknown FACIAL Verified 10/16/22 11:37 SWELLING THROAT TIGHTNESS Review of Systems Review of Systems: Constitutional : No Weight loss, No Fever, No Chills, No Night Sweats, No Fatigue, No Malaise ENT/Mouth : No Hearing loss, No Ear Pain, No Nasal Congestion, No Sinus Pain, No Hoarseness, No sore throat, No Rhinorrhea, No Swallowing Difficulty Eyes: Complaining of right eye pain, burning sensation, watery eye Cardiovascular : No Chest Pain, No SOB, No Dyspnea on Exertion, No Orthopnea, No Edema, No Palpitations Respiratory : No Cough, No Sputum, No Wheezing, No Smoke Exposure, No Dyspnea Gastrointestinal : No Nausea, No Vomiting, No Diarrhea, No Constipation, No abdominal Pain, No Hematochezia, No Melena Genitourinary : no irregular bleeding, No Dysuria, No Urinary Frequency, No Hematuria, No Urinary Incontinence, No Urgency, No Flank Pain, No Urinary Flow Changes, No Hesitancy Musculoskeletal : No joint pain, No Myalgias, No Joint Swelling Skin : No Skin Lesions, No rash Neuro : No Weakness, No Numbness, No Paresthesias, No Loss of Consciousness, No Dizziness, No Headache Psych : No Anxiety/Panic, No Depression, No SI/HI/AH/VH, No Social Issues, Heme/Lymph: No Bruising, No Bleeding,No Lymphadenopathy Endocrine : No Polyuria, No Polydipsia, No Temperature Intolerance [facility] Past Medical History Medical History Pre-op evaluation SHMUEL (generalized anxiety disorder) Mild depression Obese Surgical History History of gastric surgery History of eye surgery History of appendectomy Family History Family History Father Diabetes Hypertension Chronic mental illness Depression Mother No problems noted. Paternal Grandmother Pneumonia Paternal Grandfather Throat cancer Suicide Family/Other FH: mental illness Social History Social History Housing: Apartment Alcohol intake: current Alcohol intake frequency: does not drink Alcohol type: wine Patient Tobacco Use Status: Former Tobacco user Tobacco use type: Cigarette e-Cigarette/Vaping Use: Never Used Second Hand Smoke Exposure: No service: No Current occupational status: employed Current occupational exposures/hazards: No Cognitive needs: No Hearing needs: No Vision needs: Yes (glasses) Physical Exam Vital Signs: Vital Signs: Last Vital Signs Temp 97.0 F 04/19/23 03:38 Pulse 87 04/19/23 03:38 Resp 20 04/19/23 03:38 BP 118/79 04/19/23 03:38 Pulse Ox 98 04/19/23 03:38 O2 Del Method Room Air 04/19/23 03:38 BMI result Body Mass Index 31.1 Const: Other: Appearance: Alert. Oriented X3. No acute distress. Eyes: Pupils equal, round and reactive to light. eye pressure on the left: 23mmHg, Eye pressure on the right: 21mmHg. Fluorescein test on left eye wnl. on the right eye there's a large ulcer in the cornea, negative Kayley's sign. ENT: Pharynx normal. Neck: Normal inspection. Neck supple. No lymph nodes noted. No crepitus CVS: Normal heart rate and rhythm. Pulses normal. Normal S1 and S2 Respiratory: No respiratory distress. Breath sounds normal. No Wheezing. No rales Abdomen: Soft and nontender. No rigidity. No distention. Skin: Skin warm and dry. Normal skin color. Normal skin turgor. Extremities: No lower extremity edema. No Lacerations. No Rash Neuro: Oriented X 3. No motor deficit. No sensory deficit. Moving all extremities. No slurred speech. CN 2 through 12 grossly intact Psych: calm, cooperative,very anxious Medical Decision Making Medical Decision Making MDM Narrative: i discussed the physical exam with the patient, she has a large ulcer in the eye. The patient was given a dose of IM Toradol. Patient's pain greatly improved after tetracaine was applied to the eye. -discussed with the patient not to wear contact lenses. Patient instructed to follow-up with Dr. Lewis this morning at 07:00. Differential Diagnosis Differential Diagnoses: The differential diagnosis associated with the presentation includes (Conjunctivitis, keratitis, corneal ulcer) Discharge Plan Discharge Clinical Impression: Corneal ulcer of right eye Patient Disposition: Home, Self-Care Instructions: Corneal Ulcer (ED) Additional Instructions: Please follow-up with your primary care physician tomorrow. If you have any worsening or new symptoms, please return to the emergency room or call 911 Prescriptions: New moxifloxacin 0.5 % drops 1 drp ophthalmic (eye) TID 7 Days Qty: 3 0RF ketorolac 0.4 % drops 1 drp ophthalmic (eye) QID PRN (Reason: pain) 4 Days Qty: 5 0RF ketorolac 10 mg tablet 10 mg PO TID PRN (Reason: pain) Qty: 10 0RF No Action buspirone 10 mg tablet 10 mg PO BID 90 Days Qty: 180 1RF sertraline 100 mg tablet 100 mg PO DAILY Referrals: Channing Lewis [Physician] - 04/19/23 7:00 am
[2023-04-19] MEDS: Ketorolac Tromethamine 60 MG/2 ML VIAL IM (04:56)
[2023-04-19] MEDS: Tetracaine HCl/PF 0.5% Oph Sol 4 ML DROPS 3 DROP EYE-BOTH (04:57)
[2023-04-19] MEDS: Fluorescein Sodium STRIP 1 STRIP EYE-LEFT (04:57)
[2023-04-19 06:01] VITALS: BP 109/82; PULSE 73; RESP 20; TEMP 36.5; O2SAT 98
[2023-04-19] MEDS: hydrOXYzine HCL 50 MG TABLET PO (06:34)
--- NOTE | 2023-04-19 06:36 | PC.NURSE ---
this rn attempted x 2 to discharge pt,pt continues to report pain and anxiety this rn made dr patiño aware of pt complaints. per dr patiño order verbal with readback order placed for hydroxazine 50mg po. pt medicated according to mar
--- NOTE | 2023-04-19 06:45 | PC.NURSE ---
pt continues to endorse pain and anxiety. pt family member at bedside. discharge packet and provided to pt and family pt and family verbalized understanding. pt encouraged to call eye doctor first this this morning.
== END 2023-04-19 07:20 | disposition home or self-care (01) ==
PROVIDERS: Emergency Provider Emergency Medicine
DX: H16.001 Unspecified corneal ulcer, right eye (principal); H57.11 Ocular pain, right eye
CPT/HCPCS: 96372; 99284; J1885

== ENCOUNTER 2023-07-25 17:22 | Outpatient (AMB) | payer OTHER, SELFPAY ==
[2023-07-25 17:42] VITALS: BP 110/70; BMI 29.8
--- NOTE | 2023-07-25 17:42 | MHC.PC.OV ---
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 Accompanied by: Self / Same As Patient Allergies sumatriptan [Sumatriptan] Allergy (Unknown, Verified 07/25/23 17:50) FACIAL SWELLING THROAT TIGHTNESS Medication List - Last Reconciled 07/25/23 by Janet Alanis MD propranolol 10 mg PO BID sertraline 100 mg PO DAILY Tobacco use date assessed: 07/25/23 Dental Screening Dental Screen Date: 07/25/23 Did you have a dental visit in the last 12 months?: Yes Did you have a dental problem in the last 6 months where you did not have access to dental care?: No Was dental information given to patient?: Patient has dentist HPI HPI Comments History of Present Illness Details This is a 33 year old female with mild major depression, anxiety and migraines that comes today complaining of an allergic reaction associated with hives to an unknown allergen. Will do RAST. Depression and anxiety stable with SSRIs. On migraine prophylaxis with Propanolol. No chest pain or shortness of breath. [facility] Medical History (Updated 07/25/23 @ 17:52 by Janet Alanis MD) Pre-op evaluation SHMUEL (generalized anxiety disorder) Mild depression Obese Surgical History History of gastric surgery History of eye surgery History of appendectomy Family History Father Diabetes Hypertension Chronic mental illness Depression Mother No problems noted. Paternal Grandmother Pneumonia Paternal Grandfather Throat cancer Suicide Family/Other FH: mental illness Social History Housing: Apartment Alcohol intake: current Alcohol intake frequency: holidays/special occasions only Alcohol type: wine Patient Tobacco Use Status: Former Tobacco user Tobacco use type: Cigarette e-Cigarette/Vaping Use: Never Used Second Hand Smoke Exposure: No Substance Use Type: Marijuana service: No Current occupational status: employed Current occupational exposures/hazards: No Cognitive needs: No Hearing needs: No Vision needs: Yes (glasses) Questionnaire PHQ-9 Over the last 2 weeks, how often have you been bothered by any of the following problems? 1. Little interest or pleasure in doing things: not at all 2. Feeling down, depressed, or hopeless: several days 3. Trouble falling or staying asleep, or sleeping too much: more than half the days 4. Feeling tired or having little energy: more than half the days 5. Poor appetite or overeating: not at all 6. Feeling bad about yourself - or that you are a failure or have let yourself or your family down: not at all 7. Trouble concentrating on things, such as reading the newspaper or watching television: not at all 8. Moving or speaking so slowly that other people could have noticed. Or the opposite - being so fidgety or restless that you have been moving around a lot more than usual: not at all 9. Thoughts that you would be better off or of hurting yourself in some way: not at all Total score: 5 Depression Screening Interpretation: Positive Depression Screening Follow-up: Existing condition and In treatment Depression Screening Done: Yes 05501 - PHQ-9 Billing: Yes Source: Developed by Drs. Jimy Pete, Celeste Damon, Daryn Saldaña and colleagues, with an educational roge from [employer]. Thrive Questionnaire Date Thrive assessed: 07/25/23 I am a: Patient What is your living situation today?: I have a steady place to live Within the past 12 months, did the food you bought not last and you didn't have the money to get more?: Never true Within the past 12 months, did you worry whether your food would run out before you got money to buy more?: Never true Do you have trouble paying for medicines?: No Do you have trouble getting transportation to medical appointments?: No Do you have trouble paying your heating and electricity bill?: No Do you have trouble taking care of your child, family member or friend?: No Do you have trouble with day-to-day activities such as bathing, preparing meals, shopping, managing finances, etc.?: No Are you currently unemployed and looking for a job?: No Are you interested in more education?: No Please select the resources that you would like help with: None Currently or been in a relationship where the following occur: no concerns reported THRIVE Score: 0 AUDIT C Alcohol Use Questionnaire (AUDIT-C) 1. How often do you have a drink containing alcohol?: Monthly or less 2. How many drinks containing alcohol do you have on a typical day when you are drinking?: 1 or 2 3. How often do you have six or more drinks on one occasion?: Never Total Score: 1 SHMUEL-7 AMB Questionnaire SHMUEL-7 Date SHMUEL - 7 assessed: 07/25/23 Feeling nervous, anxious, or on edge: 2 = More than half the days Not being able to stop or control worryin = Not at all Worrying too much about different things: 2 = More than half the days Trouble relaxin = Several days Being so restless that it is hard to sit still: 1 = Several days Becoming easily annoyed or irritable: 1 = Several days Feeling afraid as if something awful might happen: 0 = Not at all Total SHMUEL-7 score (0-4 normal; 5-9 mild; 10-14 moderate; 15-21 severe): 7 Source: Developed by Drs. Jimy Pete, Celeste Damon, Daryn Saldaña and colleagues, with an educational roge from [employer]. SHMUEL-7 Assessment Billing SHMUEL-7 Assessment Tool: SHMUEL-7 Assessment 17860 Review of Systems Const All systems reviewed & are unremarkable except as noted in HPI and below Eyes Reports no additional complaints, Denies change in vision and Denies other visual disturbances Card Denies chest pain at rest, Denies chest pain with activity, Denies edema, Denies irregular heart rhythm, Denies claudication, Denies dyspnea, Denies dyspnea on exertion, Denies orthopnea, Denies paroxysmal nocturnal dyspnea and Denies slow heart rate Resp Denies cough, Denies dyspnea and Denies dyspnea on exertion GI Denies abdominal pain, Denies change in bowel habits, Denies excessive flatus, Denies nausea and Denies vomiting Denies urinary incontinence, Denies urinary hesitancy and Denies urinary urgency Musc Denies abnormal gait, Denies atrophy, Denies deformity and Denies limited range of motion Skin/Breast Denies bleeding lesions, Denies changing lesions and Denies rash Neuro Denies abnormal gait, Denies behavioral changes and Denies lack of coordination Psych Denies behavioral changes Physical exam (Primary Care) Vital Signs: Last Vital Signs BP 110/70 07/25/23 17:42 BMI result Body Mass Index 29.8 Tobacco/Smoking Status: Tobacco use Status Tobacco use date assessed 07/25/23 07/25/23 17:50 Patient Tobacco Use Status Former Tobacco user 07/25/23 17:50 Tobacco use type Cigarette 07/25/23 17:50 e-Cigarette/Vaping Use Never Used 07/25/23 17:50 PHQ-9: PHQ-9 Score PHQ-9: Total score 5 07/25/23 17:50 Depression Screening Interpretation: Positive Depression Screening Follow-up: Existing condition and In treatment Thrive Assessment: Date of Thrive Assessment Date Thrive assessed 07/25/23 07/25/23 17:50 Currently or been in a relationship where the following occur: no concerns reported Eyes General: appearance normal, both eyes and all related structures Eyelids: Yes eyelids normal Conjunctivae: conjunctivae normal Neck Neck: Yes normal visual inspection and Yes supple Resp Effort & Inspection: normal respiratory effort Auscultation: clear to auscultation bilaterally Cardio Jugular venous distension: no JVD Rate: regular rate Rhythm: regular rhythm Heart sounds: S1 normal heart sound present and S2 normal heart sound present Extrem General: Yes full ROM Assessment and Plan Assessment & Plan (1) Allergic reaction: Code(s): T78.40XA - Allergy, unspecified, initial encounter Plan: RAST test ordered. (2) Mild depression: Code(s): F32.0 - Major depressive disorder, single episode, mild Plan: Continue SSRIs. (3) SHMUEL (generalized anxiety disorder): Code(s): F41.1 - Generalized anxiety disorder Plan: Continue SSRIs. (4) Headache, migraine: Code(s): G43.909 - Migraine, unspecified, not intractable, without status migrainosus Plan: Continue Propanolol. Orders: Orders Rast Allergen Today T78.40XA - Allergy, unspecified, initial encounter Medications: New cetirizine (All Day Allergy (cetirizine)) 10 mg PO DAILY 90 days PRN 90 tabs 0RF allergy symptoms Coding Level of Care Code Est Pt Level 4 (53596) Diagnoses Allergic reaction T78.40XA Mild depression F32.0 SHMUEL (generalized anxiety disorder) F41.1 Headache, migraine G43.909 Additional Codes SHMUEL-7 Assessment Billing - SHMUEL-7 Assessment Tool: SHMUEL-7 Assessment 43983 ([id number]) Time Spent (min) 23
== END 2023-07-25 18:00 | disposition home or self-care (01) ==
PROVIDERS: Visit Provider Internal Medicine
DX: L50.9 Urticaria, unspecified (principal); F32.0 Major depressive disorder, single episode, mild; F41.1 Generalized anxiety disorder; G43.909 Migraine, unspecified, not intractable, without status migrainosus
CPT/HCPCS: 99214

== ENCOUNTER 2024-03-20 14:49 | Outpatient (AMB) | payer OTHER, SELFPAY ==
--- NOTE | 2024-03-20 14:58 | A.OFFPC_ITS ---
Vital Signs 03/20/24 15:02 Height 5 ft 2 in Weight 171 lb BMI 31.3 BP 120/70 Blood Pressure Location Lt brachial Position Sitting Intake Visit Reasons: Dr Cain Blockmi [facility] liposuction 04/02 Intake Note: Patient here for Liposuction 04/02 Dr Cain [place], c/o low back pain Health Plan Manager Required: No Accompanied by: Self / Same As Patient Allergies sumatriptan [Sumatriptan] Allergy (Unknown, Verified 03/20/24 15:07) FACIAL SWELLING THROAT TIGHTNESS Medication List - Last Reconciled 03/20/24 by Janet Alanis MD atomoxetine (Strattera) 60 mg PO DAILY cetirizine (All Day Allergy (cetirizine)) 10 mg PO DAILY PRN 90 days propranolol 10 mg PO BID sertraline 100 mg PO DAILY Tobacco use date assessed: 07/25/23 Dental Screening Dental Screen Date: 07/25/23 HPI HPI Comments History of Present Illness Details This is a 33-year-old female with mild major depression that comes for preop evaluation for liposuction scheduled for this month in [place]. She denies any chest pain or shortness on breath. Depression stable with sertraline. Labs were done and were within normal limits. EKG still pending for medical clearance. Has 4-7 Mets of ADLs. [facility] Medical History (Updated 03/20/24 @ 15:13 by Janet Alanis MD) Pre-op evaluation SHMUEL (generalized anxiety disorder) Mild depression Obese Surgical History (Updated 03/20/24 @ 15:12 by Janet Alanis MD) Status post surgical removal of both fallopian tubes History of gastric surgery History of eye surgery History of appendectomy Family History Father Diabetes Hypertension Chronic mental illness Depression Mother No problems noted. Paternal Grandmother Pneumonia Paternal Grandfather Throat cancer Suicide Family/Other FH: mental illness Social History Housing: Apartment Alcohol intake: current Alcohol intake frequency: holidays/special occasions only Alcohol type: wine Patient Tobacco Use Status: Former Tobacco user Tobacco use type: Cigarette e-Cigarette/Vaping Use: Never Used Second Hand Smoke Exposure: No Substance Use Type: Marijuana service: No Current occupational status: employed Current occupational exposures/hazards: No Cognitive needs: No Hearing needs: No Vision needs: Yes (glasses) Questionnaire Thrive Questionnaire Date Thrive assessed: 07/25/23 SHMUEL-7 AMB Questionnaire SHMUEL-7 Date SHMUEL - 7 assessed: 07/25/23 Source: Developed by Drs. Jimy Pete, Celeste Damon, Daryn Saldaña and colleagues, with an educational roge from [employer] Review of Systems Const All systems reviewed & are unremarkable except as noted in HPI and below Card Denies chest pain at rest, Denies chest pain with activity, Denies edema, Denies irregular heart rhythm, Denies claudication, Denies dyspnea, Denies dyspnea on exertion, Denies orthopnea, Denies paroxysmal nocturnal dyspnea and Denies slow heart rate Resp Denies cough, Denies dyspnea and Denies dyspnea on exertion Physical exam (Primary Care) Vital Signs: Last Vital Signs BP 120/70 03/20/24 15:02 BMI result Body Mass Index 31.3 BMI Assessment/Plan discussion: High BMI High, discussed plan: lifestyle, weight reduction, dietary and physical activity Tobacco/Smoking Status: Tobacco use Status Tobacco use date assessed 07/25/23 03/20/24 15:03 Patient Tobacco Use Status Former Tobacco user 03/20/24 15:03 Tobacco use type Cigarette 03/20/24 15:03 e-Cigarette/Vaping Use Never Used 03/20/24 15:03 Thrive Assessment: Date of Thrive Assessment Date Thrive assessed 07/25/23 03/20/24 15:03 Resp Effort & Inspection: normal respiratory effort Auscultation: clear to auscultation bilaterally Cardio Jugular venous distension: no JVD Rate: regular rate Rhythm: regular rhythm Heart sounds: S1 normal heart sound present and S2 normal heart sound present Extrem General: Yes full ROM Office Procedures Flu Questionnaire Does the patient have a severe egg allergy?: No Immunizations Fluarix Triv [id number] (PF) 45 mcg (15 mcg x 3)/0.5 mL IM syringe Performing Provider: Janet Alanis MD [facility] Documented (not given) by: HAYLEE English on 03/20/24 15:09 Reason Not Given: Patient Refused Coding Level of Care Code Est Pt Level 3 (60846) Complex EM visit Add On G2211 Diagnoses Pre-op evaluation Z01.818 Mild depression F32.0 Time Spent (min) 19 Assessment & Plan Assessment & Plan (1) Pre-op evaluation: Code(s): Z01.818 - Encounter for other preprocedural examination Category: Medical Plan: EKG pending for medical clearance. (2) Mild depression: Code(s): F32.0 - Major depressive disorder, single episode, mild Category: Medical Plan: Continue sertraline. Orders: Orders Influenza [id number] Immunization Today Z23 - Encounter for immunization ECG 12 lead EKG Today Z01.818 - Encounter for other preprocedural examination
[2024-03-20 15:02] VITALS: BP 120/70; BMI 31.3
== END 2024-03-20 15:17 | disposition home or self-care (01) ==
LOC: HO.HMCH 14:50
PROVIDERS: PCP Internal Medicine; Visit Provider Internal Medicine
DX: Z01.818 Encounter for other preprocedural examination (principal); F32.0 Major depressive disorder, single episode, mild; Z23 Encounter for immunization

== ENCOUNTER → 2024-03-20 14:49 | Outpatient (BNVA) | payer OTHER, SELFPAY | PROVIDERS: PCP Internal Medicine; Visit Provider Internal Medicine | DX: Z01.818 Encounter for other preprocedural examination (principal); F32.0 Major depressive disorder, single episode, mild | CPT/HCPCS: 90471; 99212 ==

== ENCOUNTER 2024-03-24 12:25 | Outpatient (REF) | payer OTHER, SELFPAY ==
--- NOTE | 2024-03-24 12:50 | ECG_ITS ---
Test Reason : PRE OP Blood Pressure : / mmHG Vent. Rate : 065 BPM Atrial Rate : 065 BPM P-R Int : 148 ms QRS Dur : 078 ms QT Int : 392 ms P-R-T Axes : 017 023 003 degrees QTc Int : 407 ms Normal sinus rhythm Normal ECG When compared with ECG of 03-MAY-2021 12:19, Nonspecific T wave abnormality no longer evident in Anterolateral leads Referred By: Janet Alanis Electronically Signed By:Barrington Zavala
== END 2024-03-24 12:26 | disposition home or self-care (01) ==
LOC: HO.LAB 12:25
PROVIDERS: PCP Internal Medicine; Visit Provider Internal Medicine
DX: Z01.818 Encounter for other preprocedural examination (principal)
CPT/HCPCS: 93005

== ENCOUNTER → 2024-03-24 12:50 | Outpatient (BNV) | payer OTHER, SELFPAY | PROVIDERS: PCP Internal Medicine; Visit Provider Internal Medicine Cardiovascular Disease | DX: Z01.810 Encounter for preprocedural cardiovascular examination (principal) | CPT/HCPCS: 93010 ==